=== PATIENT | male | born 1935 | race Hispanic/Latino ===

== ENCOUNTER 2018-08-07 10:51 | Inpatient (IN) | payer MEDICARE, BC ==
[2018-08-07 10:52] VITALS: BMI 20.8
--- NOTE | 2018-08-07 12:21 | ED PDOC ---
Arrival/HPI - General Chief Complaint: Lower Extremity Problem/Injury Time Seen by Provider: 08/07/18 11:22 Historian: Partner - History of Present Illness Narrative History of Present Illness (Text): Patient brought in by girlfriensilvina for right hip pain x2 days. He has a history of dementia and is unable to provide any more information. Girlfriend states that yesterday she got the patient out of bed and he yelled in pain when she tried to move his right leg. She also noted some possible right rib pain as well. She thought the the patient could have perhaps had a fall the night before, but she did not witness anything herself, and the patient was unable to tell her what happened due to his dementia. Girlfriend noted no overt signs of trauma. This morning she noted that the pain persisted, so she brought the patient to the ED. Time/Duration: 24 hours Symptom Onset: Sudden Symptom Course: Unchanged Activities at Onset: Rest Context: Home Past Medical History - Provider Review Nursing Documentation Reviewed: Yes - Infectious Disease Hx of Infectious Diseases: None - Cardiac Hx Cardiac Disorders: No Hx Pacemaker: No - Neurological Hx Paralysis: No - Hematological/Oncological Hx Blood Transfusions: No Hx Blood Transfusion Reaction: No - Musculoskeletal/Rheumatological Hx Musculoskeletal Disorders: No - Psychiatric Hx Emotional Abuse: No Hx Physical Abuse: No Hx Substance Use: No - Anesthesia Hx Anesthesia Reactions: No Hx Malignant Hyperthermia: No - Suicidal Assessment Feels Threatened In Home Enviroment: No Family/Social History - Physician Review Nursing Documentation Reviewed: Yes Family/Social History: Unknown Family HX Smoking Status: Unknown If Ever Smoked Hx Alcohol Use: No Hx Substance Use: No Allergies/Home Meds Allergies/Adverse Reactions: Allergies No Known Allergies Allergy (Verified 08/07/18 15:25) Home Medications: Home Meds Medication Instructions Recorded Confirmed Tamsulosin [Flomax] 0.4 mg PO POSTDI 03/17/15 08/07/18 Review of Systems - Physician Review All systems were reviewed & negative as marked: Yes - Review of Systems Constitutional: absent: Fatigue, Fevers Respiratory: absent: SOB, Cough, Wheezing Cardiovascular: absent: Chest Pain Musculoskeletal: Arthralgias (R. Hip and R. pain) Psychiatric: Other (Alzheimer ) Physical Exam Vital Signs Reviewed: Yes Vital Signs Temp Pulse Resp BP Pulse Ox 08/07/18 11:09 98.2 F 98 H 18 115/81 96 Temperature: Afebrile Blood Pressure: Normal Pulse: Regular Respiratory Rate: Normal Appearance: Positive for: Uncomfortable Pain Distress: Mild Mental Status: Positive for: Confused (baseline dementia). No: Lethargic - Systems Exam Head: Present: Atraumatic, Normocephalic. No: Tenderness, Contusion, Swelling, Ecchymosis, Abrasion, Laceration Pupils: Present: PERRL Extroacular Muscles: Present: EOMI Conjunctiva: Present: Normal Mouth: Present: Dry Nose (External): Present: Atraumatic Neck: Present: Normal Range of Motion Respiratory/Chest: Present: Clear to Auscultation, Good Air Exchange, Other (Mild tenderness to right lateral inferior ribs). No: Respiratory Distress Cardiovascular: Present: Regular Rate and Rhythm, Normal S1, S2 Abdomen: No: Tenderness, Distention, Peritoneal Signs Upper Extremity: Present: Normal Inspection. No: Cyanosis, Edema Lower Extremity: Present: Tenderness (R. Hip tenderness), Other (R. Leg held in external rotation). No: Edema, Cyanosis, Normal ROM (Decreased ROM Right Lower extremity ), Swelling, Erythema Neurological: Present: Other (Patient confused, has dementia, unable to fully perform neuro exam) Skin: Present: Warm, Dry, Normal Color, Other (No ecchymosis noted). No: Rashes, Laceration, Abrasion Psychiatric: Present: Alert, Other (Unable to answer questions due to dementia) Medical Decision Making ED Course and Treatment: 08/07/18 12:12 Impression: 83 year old F presents to the Emergency department with R. Rib and R. Hip pain since last night, according to girlfriend. Plan: --Motrin tab --HIP MIN V W/ Pelvis RT XRay --Right Ribs XRAY --Reassess and disposition Prior Visits: Notes and results from previous visits were reviewed. Progress Notes: Patient seen and examined. History obtained from girlfriend, who is the patient's POA. Sarah- . Imaging of R ribs and hip ordered. Motrin PO given for pain, girlfriend states she does not want the patient to get any narcotics to decrease his mental status. 08/07/18 14:01 Ribs XRAY: No acute displaced rib fracture No actute findings Hip/Pelvis XRay: Acute nondisplaced fracture in the right supra-acetabular iliac bone 08/07/18 15:24 Chest X-ray: No active pulmonary disease Hip fx noted. Ortho (Dr. Paez) consulted. Case discussed with Dr. Siobhan Simpson who accepts patient for admission. After patient was admitted, I was given an EKG that was done on patient arrival, presumably during triage. I did not order, review or sign off on the EKG and was thus unaware that it was done. EKG showed acute STEMI with ST elevation in V2-V6. I reviewed this EKG and immediately contacted Dr. Archibald, marketing communications specialist for code heart. Repeat EKG done showing the same STEMI findings. Patient denies chest pain. Dr. Archibald states that STEMI is likely subacute, recommends starting heparin. No code heart at this time. EKG 11:10 Sinus tachycardia, rate 109. LAD. Incomplete RBBB. ST elevation leads V2-V6. No ectopy. Normal intervals. Spoke to patient's girlfriend and discussed these new findings. Girlfriend states that patient has not had any complaints of chest pain or shortness of breath. She would like the patient to be DNR/DNI and does not want any invasive procedures including cardiac cath. Troponin added to labs and was found to be elevated. Spoke again to Dr. Siobhan Simpson, who agrees with plan for heparin for STEMI. CT head ordered to rule out intracranial hemorrhage prior to starting heparin, given unclear nature of fall. Code status order placed, patient DNR/DNI per girlfriend/POA's request. 08/07/18 21:45 CT Head: BRAIN No acute intraparenchymal hemorrhage. No mass lesion. No CT evidence for acute territorial infarct. No midline shift or extra-axial collections. There is advanced age appropriate diffuse cerebral/cerebellar atrophy. There are bilateral confluent periventricular and subcortical white matter hyperlucencies compatible with severe chronic microvascular disease. VENTRICLES: No hydrocephalus. VASCULAR: Atherosclerotic vascular plaquing is seen within the right vertebral artery and bilateral carotid siphons. ORBITS: The orbits are unremarkable. SINUSES AND MASTOIDS: The paranasal sinuses and mastoid air cells are clear. BONES: No fracture. SOFT TISSUES: Unremarkable. IMPRESSION: 1. No acute intracranial abnormality. 2. Advanced age-appropriate diffuse cerebral/cerebellar atrophy. 3. Severe chronic microvascular disease. 4. Atherosclerotic vascular plaquing as described above. Electronically signed on Aug 07, 2018 9:39:08 PM EDT by: Bhupendra Joshi M.D., MBA Certified By [facility] [facility] Fellowship Trained MRI and CT Specialist Heparin bolus and gtt initiated. Patient hemodynamically stable throughout ED course. - RAD Interpretation Radiology Orders: 08/07/18 11:40 HIP MIN 2V W/ PELVIS RT [RAD] Stat RIBS RIGHT [RAD] Stat Radio Director: Radiologist - Medication Orders Current Medication Orders: Discontinued Medications Ibuprofen (Motrin Tab) 600 mg PO STAT STA Stop: 08/07/18 11:41 Last Admin: 08/07/18 12:03 Dose: 600 mg MAR Pain/Vitals Document 08/07/18 12:03 DELPHINE (Rec: 08/07/18 12:03 DELPHINE [id number]) Pain Reassessment Is This A Pain ReAssessment? Yes Presence of Pain Presence of Pain Yes Location Left, Right or Bilateral Right Pain Location Body Site Knee - PA / [employer] / Resident Statement MD/DO has reviewed & agrees with the documentation as recorded. - Scribe Statement The provider has reviewed the documentation as recorded by the Michel Barrow All medical record entries made by the Michel were at my direction and personally dictated by me. I have reviewed the chart and agree that the record accurately reflects my personal performance of the history, physical exam, medical decision making, and the department course for this patient. I have also personally directed, reviewed, and agree with the discharge instructions and disposition. Disposition/Present on Arrival - Present on Arrival Any Indicators Present on Arrival: No History of DVT/PE: No History of Uncontrolled Diabetes: No Urinary Catheter: No History of Decub. Ulcer: No History Surgical Site Infection Following: None - Disposition Have Diagnosis and Disposition been Completed?: Yes Diagnosis: Hip fracture, right, STEMI (ST elevation myocardial infarction) Disposition: HOSPITALIZED Disposition Time: 14:01 Patient Plan: Admission, Telemetry Condition: GUARDED
--- NOTE | 2018-08-07 13:33 | RAD ---
PROCEDURE: Right Hip Radiographs. HISTORY: fall COMPARISON: None. FINDINGS: BONES: There is an acute nondisplaced fracture in the right supra-acetabular iliac bone. There is diffuse bone demineralization. No bone destruction. JOINTS: Mild degenerative osteoarthrosis in the left hip joint. The sacroiliac joints are normal. SOFT TISSUES: Normal. OTHER FINDINGS: Multiple small phleboliths in the pelvis. IMPRESSION: Acute nondisplaced fracture in the right supra-acetabular iliac bone. The final report is tagged to the PA review folder.
--- NOTE | 2018-08-07 13:44 | RAD ---
Date of service: 08/07/2018 PROCEDURE: Radiographs of the Chest and Right Ribs. HISTORY: fall COMPARISON: None available. TECHNIQUE: Frontal radiograph of the chest and multiple oblique radiographs of the right ribs were obtained. FINDINGS: RIGHT RIBS: No acute fracture or focal lesion visualized. There is diffuse bone demineralization LUNGS: The right lung is well inflated and clear. There are small calcified granulomas in the right PLEURA: No pneumothorax or pleural fluid. CARDIOVASCULAR: Normal cardiac size. No pulmonary vascular congestion. No aortic atherosclerotic calcification present OTHER FINDINGS: None. IMPRESSION: No acute displaced rib fracture. No acute findings.
--- NOTE | 2018-08-07 15:16 | RAD ---
Date of service: 08/07/2018 HISTORY: preop COMPARISON: No prior. FINDINGS: LUNGS: The lungs are well inflated and clear. There are apparent small calcified nodules in the left mid lung. PLEURA: No pleural effusions or pneumothorax. CARDIOVASCULAR: The heart is normal in size. There is unfolding of the aorta. There are aortic atherosclerotic calcifications present. OSSEOUS STRUCTURES: Within normal limits for the patient's age. VISUALIZED UPPER ABDOMEN: Normal. OTHER FINDINGS: None. IMPRESSION: No active pulmonary disease.
[2018-08-07 16:55] LABS: INR 1.32; PROTHROMBIN TIME 14.7 SECONDS (9.4-12.5)
[2018-08-07 17:00] LABS: BASO # 0.01 K/mm3 (0.0-2.0); HEMOGLOBIN 10.6 g/dL (14.0-18.0); LYMPH % 4.5 % (22.0-35.0); MEAN CELL VOLUME 91.3 fl (80.0-105.0); MEAN CORPUSCULAR HEMOGLOBIN 30.8 pg (25.0-35.0); MEAN CORPUSCULAR HGB CONC 33.8 g/dl (31.0-37.0); MEAN PLATELET VOLUME 10.3 fl (7.0-11.0); MONO # 2.7 (0.1-0.6); MONO % 11.8 % (1.0-6.0); PLATELET COUNT 186 10^3/uL (120.0-450.0); RBC 3.44 10^6/uL (3.5-6.1); RED CELL DISTRIBUTION WIDTH 14.4 % (11.5-14.5); WHITE BLOOD COUNT 22.9 10^3/uL (4.5-11.0)
[2018-08-07 17:02] LABS: ALB/GLOB RATIO 1.2 (1.1-1.8); ALBUMIN 4.3 g/dL (3.0-4.8); CALCIUM 9.8 mg/dL (8.4-10.5)
--- NOTE | 2018-08-07 17:10 | CARD ---
APPROVED REPORT Date of service: 08/07/2018 EKG Measurement Heart [id number] <Conclusion> Sinus tachycardia Left axis deviation Incomplete right bundle branch block Anterior infarct, age undetermined Lateral injury pattern ACUTE [place] Abnormal ECG
[2018-08-07 17:40] LABS: TROPONIN I 42.8 ng/mL
[2018-08-07 17:46] LABS: LYMPHOCYTE 9 % (22.0-35.0); MONOCYTE 10 % (1.0-6.0); NEUTROPHIL 81 % (50.0-70.0)
[2018-08-07 17:47] LABS: HYPOCHROMIA 2+; PLATELET ESTIMATE NORMAL (NORMAL); ROULEAU 2+; TOXIC GRANULATION 2+
[2018-08-07] MEDS ORDERED: Heparin25000 units/250ml 1/2NS 25,000 UNITS/250 ML BAG IV SCH (20:00)
--- NOTE | 2018-08-07 20:37 | HP ---
HISTORY OF PRESENT ILLNESS: The patient is an 83-year-old man with a past medical history of hypertension and Alzheimer dementia who presented for evaluation of a 2 day history of right hip pain. The patient was in his usual state of health until approximately 2 days prior to presentation when he sustained a mechanical fall with resultant right hip trauma. The patient was found to have difficulty ambulating and bearing weight on his right side following his mechanical fall. His pain did not respond to [id number] analgesics and thus he presented to the ED for evaluation. In the ED he was afebrile and hemodynamically stable but in moderate distress secondary to right hip pain. An x-ray demonstrated an acute nondisplaced fracture of the right supraacetabular iliac bone. He was subsequently admitted for pain control, PT evaluation and orthopedic evaluation. PAST MEDICAL HISTORY: As per HPI, also BPH and vitamin B12 deficiency. PAST SURGICAL HISTORY: None. ALLERGIES: NKDA. MEDICATIONS: Lisinopril 10 mg p.o. daily, Flomax 0.4 mg p.o. daily, Donepezil 10 mg p.o. daily and Vitamin B12 1000 mcg IM every monthly. FAMILY HISTORY: Noncontributory. 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 He denies tobacco use or illicit drug abuse. REVIEW OF SYSTEMS: A 12-point review of systems is unobtainable given the patient's altered mental status. PHYSICAL EXAMINATION: VITAL SIGNS: Temperature 98.2, pulse 98, blood pressure 115/81, respiratory rate 18, and oxygen saturation 96% on room air. GENERAL: Frail elderly man, lying in bed, in moderate distress secondary to right hip pain. HEENT: PERRL, EOMI. No scleral icterus. No conjunctival pallor. NECK: No JVD. LUNGS: Clear to auscultation. CARDIOVASCULAR: Regular rate and rhythm. Normal S1 and S2. ABDOMEN: Normoactive bowel sounds, soft, nontender and nondistended. EXTREMITIES: No edema. Decreased range of motion to right lower extremity (limited by pain). NEUROLOGIC: Awake and alert, oriented to person. Moving all extremities and able to follow simple commands. LABORATORY DATA: Labs are pending. IMAGING STUDIES: 1. X-ray of the pelvis demonstrated acute nondisplaced fracture to the right supra acetabular iliac bone. ASSESSMENT: The patient is an 83-year-old man with a past medical history of hypertension and Alzheimer dementia who presented s/p mechanical fall with resultant fracture of the right supraacetabular iliac bone. PLAN: 1. Acute fracture of the right supraacetabular iliac bone. Imaging studies reviewed and orthopedic evaluation is pending. We will obtain routine labs, CXR and EKG in anticipation of OR. 2. Hypertension. Blood pressure controlled. Resume Lisinopril 10 mg p.o. daily. 3. BPH. Resume Flomax 0.4 mg p.o. daily. 4. Alzheimer dementia. The patient remains at his baseline mental status. Resume Donepezil 10 mg p.o. daily. CODE STATUS: DNR/DNI. Rashid Simpson MD MTDMagdi
[2018-08-07] MEDS: Sodium Chloride 0.9% 1,000 ML IV SCH (21:19)
[2018-08-07] MEDS: Heparin 25,000units in 1/2NS 250 ML BAG IV SCH (21:54)
[2018-08-08 04:09] LABS: BASO # 0.01 K/mm3 (0.0-2.0); BASO % 0.1 % (0.0-3.0); LYMPH # 0.9 (1.2-3.4); LYMPH % 5.6 % (22.0-35.0); MEAN CELL VOLUME 91.4 fl (80.0-105.0); MEAN CORPUSCULAR HEMOGLOBIN 30.9 pg (25.0-35.0); MEAN CORPUSCULAR HGB CONC 33.8 g/dl (31.0-37.0); MEAN PLATELET VOLUME 9.5 fl (7.0-11.0); MONO # 1.6 (0.1-0.6); MONO % 10.1 % (1.0-6.0); RBC 2.91 10^6/uL (3.5-6.1); RED CELL DISTRIBUTION WIDTH 14.5 % (11.5-14.5); WHITE BLOOD COUNT 15.6 10^3/uL (4.5-11.0)
[2018-08-08 04:34] LABS: ALB/GLOB RATIO 1.2 (1.1-1.8); ALBUMIN 3.9 g/dL (3.0-4.8); CALCIUM 9.2 mg/dL (8.4-10.5)
[2018-08-08 04:52] LABS: TROPONIN I 31.4 ng/mL
[2018-08-08] MEDS: Sodium Chloride 0.9% 1,000 ML IV SCH (07:13)
--- NOTE | 2018-08-08 09:05 | PN ---
SUBJECTIVE: The patient was seen and examined at bedside on the telemetry [place]. No acute events overnight. He remains afebrile, hemodynamically stable and chest pain free. The patient initially presented s/p fall with resultant right hip fracture. A preoperative EKG obtained in the ED demonstrated ST elevations in the lateral leads with an elevated troponin of 42.8. He was started on a Heparin drip and admitted to the telemetry [place] for continued care. A repeat troponin was 31.4 and cardiac workup is ongoing with Dr. Archibald. Again, this morning the patient remains chest pain free and offers no complaints. OBJECTIVE: VITAL SIGNS: Temperature 98.1, pulse 97, blood pressure 127/72, respiratory rate 18, oxygen saturation 97% on room air. GENERAL: Frail elderly man lying in bed in no apparent distress. HEENT: PERRL, EOMI. No scleral icterus. No conjunctival pallor. Poor dentition is noted. NECK: No JVD. LUNGS: Clear to auscultation. CARDIOVASCULAR: Regular rate and rhythm. Normal S1, S2. ABDOMEN: Normoactive bowel sounds, soft, nontender, nondistended. EXTREMITIES: No edema. Decreased range of motion to right lower extremity (limited by pain). NEUROLOGIC: Awake and alert, oriented to person. Moving all extremities. Able to follow simple commands and answer questions. LABORATORY DATA: WBC 15.6 with 84% neutrophils, hemoglobin 9, hematocrit 27, platelets 145. Sodium 140, potassium 4.6, chloride 104, bicarb 28, BUN 68, creatinine 1.7, glucose 115. Troponin 42.8, 31.4. ASSESSMENT: The patient is an 83-year-old man with a past medical history of hypertension and Alzheimer dementia who presented s/p fall with resultant right hip fracture and was also noted to have a STEMI on preoperative EKG. PLAN: 1. STEMI. Input from Dr. Archibald noted. The patient has been started on a Heparin drip. We will start Aspirin 81 mg p.o. daily, Lipitor 40 mg p.o. daily and Metoprolol 25 mg p.o. b.i.d. He remains chest pain free. We will order a TTE to assess for wall motion abnormality. Lipid panel, TSH and A1c are pending. 2. Acute fracture of the right supra acetabular iliac bone. Orthopedic evaluation with Dr. Paez is pending. In light of his STEMI the patient will require cardiac clearance and certainly will be a high-risk candidate for an intermediate risk procedure. 3. Hypertension. Blood pressure controlled. We will discontinue Lisinopril in the setting of DANNA and start the patient on Metoprolol 25 mg p.o. b.i.d. 4. DANNA, likely secondary to prerenal azotemia. We will discontinue Lisinopril and start gentle IV fluid hydration. Continue to monitor I&O's and renal function daily. 5. BPH. Continue Flomax 0.4 mg p.o. daily. 6. Alzheimer dementia. Continue donepezil 10 mg p.o. daily. 7. Prophylaxis. GI prophylaxis not indicated as the patient is eating. DVT prophylaxis not indicated as the patient remains on therapeutic Heparin. CODE STATUS: DNR/DNI. Rashid Simpson MD MTDMagdi
--- NOTE | 2018-08-08 09:32 | CARD ---
APPROVED REPORT Date of service: 08/07/2018 EKG Measurement Heart [id number] <Conclusion> Sinus tachycardia Incomplete right bundle branch block Left anterior fascicular block ST elevation, consider anterolateral injury or acute infarct ACUTE [place] Abnormal ECG
--- NOTE | 2018-08-08 10:06 | CT ---
Date of service: 08/07/2018 PROCEDURE: CT HEAD WITHOUT CONTRAST. HISTORY: Fall COMPARISON: None available. TECHNIQUE: Axial computed tomography images were obtained through the head/brain without intravenous contrast. Radiation dose: Total exam DLP = 931.49 mGy-cm. This CT exam was performed using one or more of the following dose reduction techniques: Automated exposure control, adjustment of the mA and/or kV according to patient size, and/or use of iterative reconstruction technique. FINDINGS: HEMORRHAGE: No acute parenchymal, subarachnoid nor extra-axial hemorrhage. BRAIN: Significant diffuse/confluent chronic periventricular white matter ischemic changes seen extending peripherally into deep and subcortical white matter both cerebral hemispheres.. There appears to be some extension of these changes into the white matter tracts of both basal nuclei. Note the possibility of a small hyperacute infarct cannot be excluded on this study Moderate to fairly significant generalized volume loss. Mild vascular calcifications both carotid siphons and vertebral arteries. No obvious parenchymal nor extra-axial masses or collections seen on this noncontrast study. VENTRICLES: No obstructive hydrocephalus. CALVARIUM: Unremarkable. PARANASAL SINUSES: Mild mucosal thickening right maxillary antrum. MASTOID AIR CELLS: Unremarkable as visualized. No inflammatory changes. OTHER FINDINGS: Changes of bilateral cataract surgery present IMPRESSION: No acute intracranial hemorrhage. Significant diffuse/confluent chronic periventricular white matter ischemic changes seen extending peripherally into deep and subcortical white matter both cerebral hemispheres.. There appears to be some extension of these changes into the white matter tracts of both basal nuclei. Note the possibility of a small hyperacute infarct cannot be excluded on this study Moderate to fairly significant generalized volume loss.
[2018-08-08 11:35] LABS: HDL CHOLESTEROL 22 mg/dL (29-60)
[2018-08-08 11:45] LABS: LDL CHOLESTEROL 42 mg/dL (0-129)
--- NOTE | 2018-08-08 11:50 | CP.PCM.CON ---
History of Present Illness - History of Present Illness History of Present Illness: Ortho Consult Note: Dr. Fonseca 83 year male with PMHx of dementia was evaluated for right hip fracture. Patient is a poor historian and information retrieved from the charts. Patient states that he does not recall how he got his hip hurt. States that he tried to get out of the bed yesterday and had a lot of pain in the hip. Patient denies of any recent F/N/V/C/SOB/CP/headache. No other complains at this time. PMHx: Dementia PSHx: denies Allergies: N.K.D.A Review of Systems - Constitutional Constitutional: As Per HPI Past Patient History - Infectious Disease Hx of Infectious Diseases: None - Past Social History Smoking Status: Unknown If Ever Smoked - CARDIAC Hx Cardiac Disorders: Yes Hx Angina: No Hx Cardia Arrhythmia: No Hx Circulatory Problems: No Hx Congestive Heart Failure: No Hx Heart Murmur: No Hx Heart Transplant: No Hx Hypercholesterolemia: No Hx Hypertension: Yes Hx Internal Defibrillator: No Hx Mitral Valve Prolapse: No Hx Pacemaker: No Hx Peripheral Edema: No Hx Peripheral Vascular Disease: No - PULMONARY Hx Respiratory Disorders: No Hx Asthma: No Hx Bronchitis: No Hx Chronic Obstructive Pulmonary Disease (COPD): No Hx Emphysema: No Hx Pneumonia: No Hx Respiratory Aspiration: No Hx Respiratory Tract Infection: No Hx Sleep Apnea: No Hx Tuberculosis: No - NEUROLOGICAL Hx Neurological Disorder: Yes Hx Alzheimer's Disease: Yes HX Cerebrovascular Accident: No Hx Dementia: Yes Hx Dizziness: No Hx Meningitis: No Hx Migraine: No Hx Parkinson's Disease: No Hx Seizures: No Hx Transient Ischemic Attacks (TIA): No - HEENT Hx HEENT Problems: No Hx Blind: No Hx Cataracts: No Hx Deafness: No Hx Difficulty Chewing: No Hx Epistaxis: No Hx Glaucoma: No Hx Macular Degeneration: No - RENAL Hx Chronic Kidney Disease: No Hx Dialysis: No Hx Kidney Stones: No Hx Neurogenic Bladder: No Hx Pyelonephritis: No Hx Renal (Kidney) Cancer: No Hx Renal Failure: No - ENDOCRINE/METABOLIC Hx Endocrine Disorders: No Hx Adrenal Cancer: No Hx Diabetes Insipidus: No Hx Diabetes Mellitus Type 1: No Hx Diabetes Mellitus Type 2: No Hx Hyperthyroidism: No Hx Hypothyroidism: No Hx Systemic Lupus Erythematosus: No - HEMATOLOGICAL/ONCOLOGICAL Hx Blood Disorders: No Hx AIDS: No Hx Anemia: No Hx Cancer: No Hx Chemotherapy: No Hx Cirrhosis: No Hx Hemophilia: No Hx Hepatitis A: No Hx Hepatitis B: No Hx Hepatitis C: No Hx Human Immunodeficiency Virus (HIV): No Hx Metastesis: No Hx Shingles: No Hx Sickle Cell Disease: No Hx Unexplained Bleeding: No - INTEGUMENTARY Hx Dermatological Problems: No Hx Basil Cell: No Hx Eczema: No Hx Melanoma: No Hx Psoriasis: No Hx Squamous Cell: No - MUSCULOSKELETAL/RHEUMATOLOGICAL Hx Musculoskeletal Disorders: Yes Hx Arthritis: No Hx Back Pain: No Hx Degenerative Joint Disease: No Hx Falls: Yes Hx Fractures: No Hx Gout: No Hx Herniated Disk: No Hx Myasthenia Gravis: No Hx Osteoarthritis: No Hx Osteomyelitis: No Hx Osteoporosis: No Hx Rhabdomyolysis: No Hx Spinal Stenosis: No Hx Unsteady Gait: No - GASTROINTESTINAL Hx Gastrointestinal Disorders: No Hx Colostomy: No Hx Crohn's Disease: No Hx Diverticulitis: No Hx Gall Bladder Disease: No Hx Gastroesophageal Reflux: No Hx Ileostomy: No Hx Liver Failure: No Hx Pancreatitis: No HX Swallowing Problems: No Hx Ulcer: No - GENITOURINARY/GYNECOLOGICAL Hx Genitourinary Disorders: Yes Hx Hematuria: No Hx Incontinence: Yes Hx Prostate Problems: No Hx Sexually Transmitted Disorders: No Hx Urinary Tract Infection: No - PSYCHIATRIC Hx Psychophysiologic Disorder: No Hx Anxiety: No Hx Bipolar Disorder: No Hx Depression: No Hx Emotional Abuse: No Hx Hallucinations: No Hx Panic Symptoms: No Hx Paranoia: No Hx Post Traumatic Stress Disorder: No Hx Psychosis: No Hx Physical Abuse: No Hx Schizophrenia: No Hx Sexual Abuse: No Hx Substance Use: No - SURGICAL HISTORY Hx Surgeries: No (unknown) Hx Cardiac Catheterization: No Hx Coronary Stent: No - ANESTHESIA Hx Anesthesia Reactions: No Hx Malignant Hyperthermia: No Meds Allergies/Adverse Reactions: Allergies Allergy/AdvReac Type Severity Reaction Status Date / Time No Known Allergies Allergy Verified 08/07/18 15:25 - Medications Medications: Current Medications Aspirin (Aspirin Chewable) 81 mg PO DAILY [facility] Last Admin: 08/08/18 09:24 Dose: 81 mg Atorvastatin Calcium (Lipitor) 40 mg PO DIN [facility] Donepezil HCl (Aricept) 10 mg PO DAILY [facility] Last Admin: 08/08/18 09:24 Dose: 10 mg Sodium Chloride (Sodium Chloride 0.9%) 1,000 mls @ 100 mls/hr IV .Q10H [facility] Last Admin: 08/08/18 07:13 Dose: 100 mls/hr Heparin Sodium/Sodium Chloride (Heparin 45330 Units/250ml 1/2 Normal Saline) 25,000 units in 250 mls @ 6.885 mls/hr IV .Q24H [facility]; Protocol Last Admin: 08/07/18 21:54 Dose: 12 units/kg/hr, 6.885 mls/hr Metoprolol Tartrate (Lopressor) 25 mg PO BID [facility] Last Admin: 08/08/18 09:24 Dose: 25 mg Tamsulosin HCl (Flomax) 0.4 mg PO DAILY [facility] Last Admin: 08/08/18 09:24 Dose: 0.4 mg Physical Exam - Constitutional Appears: Well, Non-toxic, No Acute Distress - Extremities Exam Extremities exam: Positive for: tenderness, pedal pulses present. Negative for: calf tenderness, pedal edema Additional comments: Pain present at the right hip during AROM and PROM Patient is guarding due to pain Results - Vital Signs Recent Vital Signs: Last Vital Signs Temp 98.1 F 08/08/18 06:00 Pulse 182 H 08/08/18 09:24 Resp 18 08/08/18 06:00 BP 93/56 L 08/08/18 09:24 Pulse Ox 97 08/08/18 06:00 - Labs Result Diagrams: 08/08/18 03:50 08/08/18 03:50 Labs: Laboratory Results - last 24 hr 08/07/18 08/07/18 08/07/18 16:37 16:37 16:37 WBC 22.9 H RBC 3.44 L Hgb 10.6 L Hct 31.4 L MCV 91.3 MCH 30.8 MCHC 33.8 RDW 14.4 Plt Count 186 MPV 10.3 Neut % (Auto) 83.7 H Lymph % (Auto) 4.5 L Vigo % (Auto) 11.8 H Eos % (Auto) 0.0 L Baso % (Auto) 0.0 Lymph # (Auto) 1.0 L Vigo # (Auto) 2.7 H Eos # (Auto) 0.0 Baso # (Auto) 0.01 Absolute Neuts (auto) 19.15 H Neutrophils % (Manual) 81 H Lymphocytes % (Manual) 9 L Monocytes % (Manual) 10 H Toxic Granulation 2+ Platelet Evaluation Normal Hypochromasia 2+ Rouleaux 2+ PT 14.7 H INR 1.32 APTT Sodium 139 Potassium 4.7 Chloride 101 Carbon Dioxide 28 Anion Gap 15 BUN 64 H Creatinine 1.8 H Est GFR ( Amer) 44 Est GFR (Non-Af Amer) 36 Random Glucose 121 H Calcium 9.8 Total Bilirubin 1.0 AST 152 H ALT 38 Alkaline Phosphatase 71 Troponin I 42.80 H* Total Protein 8.0 Albumin 4.3 Globulin 3.6 Albumin/Globulin Ratio 1.2 08/07/18 08/08/18 08/08/18 16:56 03:50 03:50 WBC 15.6 H D RBC 2.91 L Hgb 9.0 L Hct 26.6 L MCV 91.4 MCH 30.9 MCHC 33.8 RDW 14.5 Plt Count 145 MPV 9.5 Neut % (Auto) 84.2 H Lymph % (Auto) 5.6 L Vigo % (Auto) 10.1 H Eos % (Auto) 0.0 L Baso % (Auto) 0.1 Lymph # (Auto) 0.9 L Vigo # (Auto) 1.6 H Eos # (Auto) 0.0 Baso # (Auto) 0.01 Absolute Neuts (auto) 13.15 H Neutrophils % (Manual) Lymphocytes % (Manual) Monocytes % (Manual) Toxic Granulation Platelet Evaluation Hypochromasia Rouleaux PT INR APTT 31.0 Sodium 140 Potassium 4.6 Chloride 104 Carbon Dioxide 28 Anion Gap 13 BUN 68 H Creatinine 1.7 H Est GFR ( Amer) 47 Est GFR (Non-Af Amer) 39 Random Glucose 115 H Calcium 9.2 Total Bilirubin 0.8 AST 105 H D ALT 34 Alkaline Phosphatase 65 Troponin I 31.40 H* D Total Protein 7.2 Albumin 3.9 Globulin 3.3 Albumin/Globulin Ratio 1.2 08/08/18 08/08/18 03:50 11:10 WBC RBC Hgb Hct MCV MCH MCHC RDW Plt Count MPV Neut % (Auto) Lymph % (Auto) Vigo % (Auto) Eos % (Auto) Baso % (Auto) Lymph # (Auto) Vigo # (Auto) Eos # (Auto) Baso # (Auto) Absolute Neuts (auto) Neutrophils % (Manual) Lymphocytes % (Manual) Monocytes % (Manual) Toxic Granulation Platelet Evaluation Hypochromasia Rouleaux PT INR APTT 52.8 H 34.4 Sodium Potassium Chloride Carbon Dioxide Anion Gap BUN Creatinine Est GFR ( Amer) Est GFR (Non-Af Amer) Random Glucose Calcium Total Bilirubin AST ALT Alkaline Phosphatase Troponin I Total Protein Albumin Globulin Albumin/Globulin Ratio Assessment & Plan - Assessment and Plan (Free Text) Assessment: 83 year old male with PMHx of dementia was evaluated for right hip fracture Plan: Patient seen and evaluated with Dr. Fonseca Labs, vitals and charts reviewed X-rays of the hip reviewed - Acute non-displaced fracture in right supra-acetabular iliac CT scan ordered - pending Will continue to follow patient Thank you for the Ortho consult - Date & Time Date: 08/08/18 Time: 11:53
--- NOTE | 2018-08-08 14:07 | CT ---
Date of service: 08/08/2018 PROCEDURE: CT pelvis/right hip HISTORY: Fall/right hip fracture. . COMPARISON: August 07, 2018. Plain film radiographs right hip TECHNIQUE: 2.5 mm axial acquisition and display. Coronal and sagittal reconstructions. Dose report (mGy-cm): 185.56. FINDINGS: Fracture through the right pelvic ring. Slightly displaced ischial fracture. Comminuted fracture of the pubis at its articulation with the anterior aspect of the acetabulum Fractures through the anterior aspect of the acetabulum and the posterior aspect of the acetabulum. There is also fracture fragment through the lateral acetabular wall. No femoral head/proximal femur fractures identified. Evidence of hemarthrosis without subluxation or dislocation. Hemorrhage also identified in adjacent pelvic musculature. IMPRESSION: Complex pelvic ring fracture described in greater detail above. Multipart burst fracture likely the sequela of direct impaction by the femoral head on the acetabulum. This involves medial, anterior and posterior aspects of the acetabular complex. The superior component extends laterally, to the super acetabular portion of the right iliac bone. At this juncture, there is destruction of bone and intramedullary soft tissue component suggesting in part a pathologic fracture.
[2018-08-08] MEDS ORDERED: Morphine 2 mg/ml ISec IVP ONE (21:42)
[2018-08-08] MEDS: Nitroglycerin 2% Ointment Foilpak UD TOP SCH (23:16)
--- NOTE | 2018-08-08 23:37 | CP.PCM.PN ---
Subjective - Date & Time of Evaluation Date of Evaluation: 08/08/18 Time of Evaluation: 23:34 - Subjective Subjective: To be dictated. Seen morphine ordered for right hip pain right leg short,rotated Objective - Vital Signs/Intake and Output Vital Signs (last 24 hours): Temp Pulse Resp BP Pulse Ox 98.6 F 83 18 115/58 L 97 08/08/18 18:00 08/08/18 18:00 08/08/18 18:00 08/08/18 18:00 08/08/18 06:00 Intake and Output: 08/08/18 08/09/18 18:59 06:59 Intake Total 96 1896 Balance 96 1896 - Medications Medications: Current Medications Aspirin (Aspirin Chewable) 81 mg PO DAILY [facility] Last Admin: 08/08/18 09:24 Dose: 81 mg Atorvastatin Calcium (Lipitor) 40 mg PO DIN [facility] Last Admin: 08/08/18 17:30 Dose: 40 mg Donepezil HCl (Aricept) 10 mg PO DAILY [facility] Last Admin: 08/08/18 09:24 Dose: 10 mg Sodium Chloride (Sodium Chloride 0.9%) 1,000 mls @ 100 mls/hr IV .Q10H [facility] Last Admin: 08/08/18 07:13 Dose: 100 mls/hr Heparin Sodium/Sodium Chloride (Heparin 54726 Units/250ml 1/2 Normal Saline) 25,000 units in 250 mls @ 6.885 mls/hr IV .Q24H [facility]; Protocol Last Titration: 08/08/18 13:11 Dose: 16 units/kg/hr, 9.181 mls/hr Metoprolol Tartrate (Lopressor) 25 mg PO BID [facility] Last Admin: 08/08/18 17:30 Dose: 25 mg Nitroglycerin (Nitro-Bid 2% Oint) 0.5 ea TOP Q6H [facility] Last Admin: 08/08/18 23:16 Dose: 0.5 ea Tamsulosin HCl (Flomax) 0.4 mg PO DAILY [facility] Last Admin: 08/08/18 09:24 Dose: 0.4 mg - Labs Labs: 08/08/18 03:50 08/08/18 03:50 PT 14.7 SECONDS (9.4-12.5) H 08/07/18 16:37 INR 1.32 08/07/18 16:37 APTT 77.2 Seconds (26.9-38.3) H 08/08/18 19:15 Assessment and Plan - Assessment and Plan (Free Text) Assessment: Right hip pain Right hip fracture HTN Alzheimer's Dementia BPH Plan: Morphine 2 mg IV x 1.
[2018-08-09] MEDS: Nitroglycerin 2% Ointment Foilpak UD TOP SCH ×4 (01:18→18:19)
[2018-08-09] MEDS: Heparin 25,000units in 1/2NS 250 ML BAG IV SCH (01:21)
--- NOTE | 2018-08-09 01:54 | CON ---
DATE: 08/08/2018 CARDIOLOGY CONSULTATION REASON FOR CONSULTATION: Abnormal EKG, computer reading with acute ST elevation PR, possible recent PR, asymptomatic demented patient. BRIEF CLINICAL HISTORY: This is an 83-year-old male with past medical history significant for dementia, hypertension, who came to the emergency room with 2 days history of right hip pain. Apparently, the patient fell down 2 days after having mechanical fall and sustained right hip trauma, came to the emergency room. Initially, the patient was using [id number] medications by the friend, now came to the emergency room found to be have acute fracture of the right hip supra-acetabular iliac bone nondisplaced, but incidental EKG finding shows ST elevation in anterior precordial leads. So, cardiac consult was called. Patient was asymptomatic and demented. ER physician notified me that he had spoke to the friend who is the power of contract attorney and does not want anything cardiac cath or any invasive procedure done and made the patient DNR/DNI. Currently, the patient is asymptomatic in room 276, bed 1. On further asking the questions, patient says that he is right here. He is not oriented to time, place, and person, but is not in apparent distress. Denies any chest pain. PAST MEDICAL HISTORY: Significant for Alzheimer disease, vitamin B12 deficiency, and benign prostatic hypertrophy. CURRENT MEDICATIONS: Patient is taking Flomax at home. REVIEW OF SYSTEMS: As per HPI. ALLERGIES: NO KNOWN DRUG ALLERGIES. PHYSICAL EXAMINATION: VITAL SIGNS: Height of the patient 5 feet 6 inches, weight of the patient 111 pounds, body mass index 18 kg/m2. Temperature afebrile, heart rate 60, and blood pressure 115/58. HEENT: PERRLA. Extraocular muscles intact. NECK: Supple. No carotid bruits. No thyromegaly. CHEST: Clear to auscultation. HEART: S1 and S2, regular. ABDOMEN: Soft. EXTREMITIES: Clubbing and cyanosis, negative. LABORATORY DATA: WBC 15.6, hemoglobin 9, hematocrit 26.6, and platelet count 145. Chemistry shows sodium 140, potassium 4.6, chloride 104, carbon dioxide 28, anion gap of 13, BUN 16, and creatinine 1.7. Troponin initially was 42.8, 31.4, and now trending down to 31.4. IMPRESSION AND PLAN: An 83-year-old male status post fall, demented, possible acute recent myocardial infarction. No ST depression reciprocal noted though the patient had ST elevation in anterior lead possibly acute lateral myocardial infarction of recent, may be aneurysmal apex LV, but no acute ST depression reciprocal. Since the patient is asymptomatic and demented, risk and benefit ratio is in favor of not to take the patient to [facility] and we will treat conservatively, started heparin yesterday. After discussing with ER physician, we will start low dose beta-devin aspirin and we will put Nitropaste. We will get echo to assess LV function, lipid profile, and start atorvastatin. Further recommendations will depend on hospital course. We will follow with you. Again, we will treat conservatively. Patient is not a candidate to go to lab[facility] chemical processing. Thank you , for providing us opportunity in taking care of patient, Abhishek Stone. Junior Archibald MD
[2018-08-09] MEDS: Sodium Chloride 0.9% 1,000 ML IV SCH ×2 (06:34→06:36)
[2018-08-09 07:47] LABS: BASO # 0.01 K/mm3 (0.0-2.0); BASO % 0.1 % (0.0-3.0); HEMOGLOBIN 7.1 g/dL (14.0-18.0); LYMPH # 0.9 (1.2-3.4); LYMPH % 8.1 % (22.0-35.0); MEAN CELL VOLUME 91.8 fl (80.0-105.0); MEAN CORPUSCULAR HEMOGLOBIN 30.6 pg (25.0-35.0); MEAN CORPUSCULAR HGB CONC 33.3 g/dl (31.0-37.0); MEAN PLATELET VOLUME 9.1 fl (7.0-11.0); MONO # 0.9 (0.1-0.6); MONO % 8.1 % (1.0-6.0); RBC 2.32 10^6/uL (3.5-6.1); RED CELL DISTRIBUTION WIDTH 14.6 % (11.5-14.5); WHITE BLOOD COUNT 11.2 10^3/uL (4.5-11.0)
[2018-08-09 08:10] LABS: LDL CHOLESTEROL 47 mg/dL (0-129)
[2018-08-09 08:12] LABS: ALB/GLOB RATIO 1.1 (1.1-1.8); ALBUMIN 3.6 g/dL (3.0-4.8); ALT/SGPT 32 U/L (7-56); AST/SGOT 75 U/L (17-59); BLOOD UREA NITROGEN 53 mg/dL (7-21); GFR NON-AFRICAN AMERICAN 58
[2018-08-09 08:38] LABS: ALB/GLOB RATIO 1.1 (1.1-1.8); ALBUMIN 3.5 g/dL (3.0-4.8); ALT/SGPT 29 U/L (7-56); AST/SGOT 75 U/L (17-59); BLOOD UREA NITROGEN 53 mg/dL (7-21); CALCIUM 8.9 mg/dL (8.4-10.5); GFR NON-AFRICAN AMERICAN 58; HDL CHOLESTEROL 21 mg/dL (29-60)
[2018-08-09 09:02] LABS: CK MB% 3.7 % (2.5-3.0); CK-MB 16.3 ng/mL (0.0-3.6)
--- NOTE | 2018-08-09 09:43 | CP.PCM.PN ---
Subjective - Date & Time of Evaluation Date of Evaluation: 08/09/18 Time of Evaluation: 06:55 - Subjective Subjective: Awake, very agitated, complaints of hip pain Reason for consultation and follow up: Cardiac evaluation of abnormal EKG, EKG reading acute ST elevation PA, denies chest pain, patient demented, recent fall complaining of right hip pain. Seen and examined by me and Dr. Archibald Objective - Vital Signs/Intake and Output Vital Signs (last 24 hours): Temp Pulse Resp BP Pulse Ox 97.4 F L 75 20 128/74 99 08/09/18 06:00 08/09/18 06:00 08/09/18 06:00 08/09/18 06:00 08/09/18 06:00 Intake and Output: 08/09/18 08/09/18 06:59 18:59 Intake Total 2049 Balance 2049 - Medications Medications: Current Medications Aspirin (Aspirin Chewable) 81 mg PO DAILY [facility] Last Admin: 08/08/18 09:24 Dose: 81 mg Atorvastatin Calcium (Lipitor) 40 mg PO DIN [facility] Last Admin: 08/08/18 17:30 Dose: 40 mg Donepezil HCl (Aricept) 10 mg PO DAILY [facility] Last Admin: 08/08/18 09:24 Dose: 10 mg Heparin Sodium/Sodium Chloride (Heparin 58480 Units/250ml 1/2 Normal Saline) 25,000 units in 250 mls @ 6.885 mls/hr IV .Q24H [facility]; Protocol Last Admin: 08/09/18 01:21 Dose: 16 units/kg/hr, 9.181 mls/hr Metoprolol Tartrate (Lopressor) 25 mg PO BID [facility] Last Admin: 08/08/18 17:30 Dose: 25 mg Nitroglycerin (Nitro-Bid 2% Oint) 0.5 ea TOP Q6H [facility] Last Admin: 08/09/18 06:36 Dose: 0.5 ea Tamsulosin HCl (Flomax) 0.4 mg PO DAILY [facility] Last Admin: 08/08/18 09:24 Dose: 0.4 mg - Labs Labs: 08/09/18 07:30 08/09/18 07:30 PT 14.7 SECONDS (9.4-12.5) H 08/07/18 16:37 INR 1.32 08/07/18 16:37 APTT 53.5 Seconds (26.9-38.3) H 08/09/18 01:15 - Constitutional Appears: Non-toxic, No Acute Distress - Head Exam Head Exam: NORMAL INSPECTION, NORMOCEPHALIC - Eye Exam Eye Exam: Normal appearance - ENT Exam ENT Exam: Mucous Membranes Dry - Respiratory Exam Respiratory Exam: Clear to Ausculation Bilateral, NORMAL BREATHING PATTERN - Cardiovascular Exam Cardiovascular Exam: REGULAR RHYTHM, +S1, +S2 - GI/Abdominal Exam GI & Abdominal Exam: Soft, Normal Bowel Sounds - Exam Additional comments: incontinent - Extremities Exam Additional comments: right hip pain - Neurological Exam Neurological Exam: Awake Additional comments: confuse, agitated - Psychiatric Exam Psychiatric exam: Agitated - Skin Skin Exam: Dry, Normal Color, Warm Assessment and Plan - Assessment and Plan (Free Text) Assessment: An 83 year old male, who was brought to the ER due to right hip pain post fall 2 days prior to admission. History of dementia, Alzheimer's disease, B12 deficiency, benign prostatic hypertrophy, hypertension. X ray showed Right hip acute non displaced fracture of right hip.EKG finding showed ST elevation on anterior precordial leads. Troponin elevated. Recommended cardiac catheterization however ER physician spoke to patient's friend who is the power of transactional attorney and does not want any invasive procedure done. Patient is DNR/DNI. Patient denies chest pain or shortness of breath. Medical treatment. Continue Heparin drip. Oriented to name only. Agitated , Ativan PRN. Low H/H. for blood transfusion of 2 units PRBC. Plan: Awake, agitated Ativan 1 mg given by marketing content specialist rate stable Blood pressure stable For PRBC transfusion for low H/H On Heparin drip, titrate to protocol On ASA 81 mg daily, Lipitor 40 mg daily,Lopressor 25 mg BID Nitropaste every 6 hours, Flomax 0.4 mg daily Continue current treatment Continue current medications DNR/DNI Will follow up Plan and treatment discussed with Dr. Archibald
--- NOTE | 2018-08-09 11:15 | PN ---
SUBJECTIVE: The patient was seen and examined at bedside on the telemetry [place]. He remains delirious and combative and has been placed in soft mitten restraints. He otherwise is hemodynamically stable and clinically unchanged. PHYSICAL EXAMINATION: VITAL SIGNS: Temperature 97.4, pulse 75, blood pressure 128/74, respiratory rate 20, oxygen saturation 99% on room air. GENERAL: A frail elderly man, lying in bed, in no apparent distress. HEENT: PERRL, EOMI. No scleral icterus. Mild conjunctival pallor is noted. Poor dentition is noted. NECK: No JVD. LUNGS: Clear to auscultation. CARDIOVASCULAR: Regular rate and rhythm. Normal S1, S2. ABDOMEN: Normoactive bowel sounds, soft, nontender and nondistended. EXTREMITIES: No edema. Decreased range of motion to right lower extremity. NEUROLOGIC: Awake, alert, confused. Moving all extremities. LABORATORY DATA: Morning labs are pending. ASSESSMENT: The patient is an 83-year-old man with a past medical history of hypertension and Alzheimer dementia who presented s/p fall with resultant right hip fracture and whose hospital course was complicated by STEMI. PLAN: 1. STEMI. Input from Dr. Archibald noted. Continue with conservative medical management with Heparin drip, Aspirin 81 mg p.o. daily, Lipitor 40 mg p.o. daily and Metoprolol 25 mg p.o. b.i.d. TTE is pending to assess for wall motion abnormality. 2. Acute fracture of the right supraacetabular iliac bone. Input from Dr. Paez noted. Continue with care as per Orthopedic Surgery. The patient will be a high-risk candidate for an intermediate risk procedure. 3. Hypertension. Blood pressure controlled. Continue Metoprolol 25 mg p.o. b.i.d. 4. DANNA, likely secondary to prerenal azotemia, resolving. We will discontinue IV fluids and encourage p.o. intake. 5. BPH. Continue Flomax 0.4 mg p.o. daily. 6. Alzheimer dementia. Continue Donepezil 10 mg p.o. daily 7. Prophylaxis. GI prophylaxis not indicated as the patient is eating. DVT prophylaxis not indicated as he is on therapeutic Heparin. CODE STATUS: DNR/DNI. Rashid Simpson MD [facility] # [id number]
[2018-08-09] MEDS ORDERED: Potassium Chloride 20 mEq ER Tab PO ONE (16:13)
--- NOTE | 2018-08-09 18:22 | CARD ---
APPROVED REPORT Date of service: 08/09/2018 EXAM: Two-dimensional and M-mode echocardiogram with Doppler and color Doppler. INDICATION POSSIBLE RECENT STEMI 2D DIMENSIONS Left Atrium (2D)4.4 (1.6-4.0cm)IVSd1.2 (0.7-1.1cm) LVDd4.8 (3.9-5.9cm)PWd1.3 (0.7-1.1cm) M-Mode DIMENSIONS Aortic Root3.70 (2.2-3.7cm)Aortic Cusp Exc.1.80 (1.5-2.0cm) Aortic Valve AoV Peak Fcnwxmtr950.0cm/Jordan Peak GR.8mmHg Mitral Valve MV E Hmblsdia00.0cm/sMV A Druqfkcm918.0cm/sE/A ratio0.6 TDI Lateral E' Peak V8.68cm/sMedial E' Peak V5.95cm/sE/Lateral E'8.9 E/Medial E'12.9 Tricuspid Valve TR Peak Nxgdzbut835mz/sRAP [id number] Peak Gr.37mmHg [id number] LEFT VENTRICLE The left ventricle is normal size. There is mild concentric left ventricular hypertrophy. The systolic function is moderately impaired.EF-30-35% Significant regional wall motion abnormalities noted. There is moderate to severe hypokinesis in the apical anterior wall. Transmitral Doppler flow pattern is Grade III-reversible restrictive diastolic dysfunction. No left ventricle thrombus noted on this study. There is no ventricular septal defect visualized. There is no left ventricular aneurysm. There is no mass noted in the left ventricle. RIGHT VENTRICLE The right ventricle is normal size. There is normal right ventricular wall thickness. The right ventricular systolic function is normal. ATRIA The left atrium is mildly dilated. The right atrium size is normal. The interatrial septum is intact with no evidence for an atrial septal defect. AORTIC VALVE The aortic valve is thickened but opens well. There is mild aortic regurgitation. There is no aortic valvular stenosis. There is no aortic valvular vegetation. MITRAL VALVE The mitral valve is thickened but opens well. Mitral regurgitation is mild. There is no mitral valve stenosis. There is no evidence of mitral valve prolapse. TRICUSPID VALVE The tricuspid valve leaflets are thickened , but open well. There is mild to moderate tricuspid regurgitation.RVSP-47 mmof HG. There is mild pulmonary hypertension. There is no tricuspid valve stenosis. There is no tricuspid valve prolapse or vegetation. PULMONIC VALVE The pulmonic valve is not well visualized. GREAT VESSELS The aortic root is normal in size. The ascending aorta is normal in size. The pulmonary artery is normal. The IVC is normal in size and collapses >50% with inspiration. PERICARDIAL EFFUSION There is no pleural effusion. There is no pericardial effusion. <Conclusion> The left ventricle is normal size. There is mild concentric left ventricular hypertrophy. The systolic function is moderately impaired.EF-30-35% Significant regional wall motion abnormalities noted. There is moderate to severe hypokinesis in the apical anterior wall. There is mild aortic regurgitation. Mitral regurgitation is mild. There is mild to moderate tricuspid regurgitation.RVSP-47 mmof HG. There is mild pulmonary hypertension. The IVC is normal in size and collapses >50% with inspiration. There is no pericardial effusion.
[2018-08-09] MEDS ORDERED: Enoxaparin 40 mg Syringe SC ONE (19:00)
[2018-08-10] MEDS: Nitroglycerin 2% Ointment Foilpak UD TOP SCH ×4 (01:49→19:05)
[2018-08-10 07:25] LABS: BASO # 0.03 K/mm3 (0.0-2.0); BASO % 0.3 % (0.0-3.0); EOS % 0.1 % (1.5-5.0); LYMPH # 0.8 (1.2-3.4); LYMPH % 8.8 % (22.0-35.0); MEAN CELL VOLUME 92.4 fl (80.0-105.0); MEAN CORPUSCULAR HEMOGLOBIN 30.9 pg (25.0-35.0); MEAN CORPUSCULAR HGB CONC 33.4 g/dl (31.0-37.0); MEAN PLATELET VOLUME 9.9 fl (7.0-11.0); MONO # 0.6 (0.1-0.6); MONO % 6.9 % (1.0-6.0); RBC 3.4 10^6/uL (3.5-6.1); RED CELL DISTRIBUTION WIDTH 14.7 % (11.5-14.5); WHITE BLOOD COUNT 8.7 10^3/uL (4.5-11.0)
[2018-08-10 07:28] LABS: HEMOGLOBIN 10.5 g/dL (14.0-18.0)
[2018-08-10 07:43] LABS: ALB/GLOB RATIO 1.2 (1.1-1.8); ALBUMIN 3.8 g/dL (3.0-4.8); ALT/SGPT 24 U/L (7-56); AST/SGOT 55 U/L (17-59); BLOOD UREA NITROGEN 39 mg/dL (7-21); CALCIUM 9.4 mg/dL (8.4-10.5); GFR NON-AFRICAN AMERICAN > 60
--- NOTE | 2018-08-10 08:44 | CP.PCM.PN ---
Subjective - Date & Time of Evaluation Date of Evaluation: 08/10/18 Time of Evaluation: 06:55 - Subjective Subjective: Awake, no distress, confuse Reason for consultation and follow up: Cardiac evaluation of abnormal EKG, EKG reading acute ST elevation NM, denies chest pain, patient demented, recent fall complaining of right hip pain. Seen and examined by me and Dr. Archibald Objective - Vital Signs/Intake and Output Vital Signs (last 24 hours): Temp Pulse Resp BP Pulse Ox 97.6 F 90 18 133/70 99 08/10/18 06:00 08/10/18 06:00 08/10/18 06:00 08/10/18 06:00 08/10/18 06:00 Intake and Output: 08/10/18 08/10/18 06:59 18:59 Intake Total 1187 Balance 1187 - Medications Medications: Current Medications Aspirin (Aspirin Chewable) 81 mg PO DAILY [facility] Last Admin: 08/09/18 15:56 Dose: 81 mg Atorvastatin Calcium (Lipitor) 40 mg PO DIN [facility] Last Admin: 08/09/18 18:17 Dose: 40 mg Donepezil HCl (Aricept) 10 mg PO DAILY [facility] Last Admin: 08/09/18 15:56 Dose: 10 mg Enoxaparin Sodium (Lovenox) 40 mg SC DAILY [facility]; Protocol Metoprolol Tartrate (Lopressor) 25 mg PO BID [facility] Last Admin: 08/09/18 20:22 Dose: Not Given Nitroglycerin (Nitro-Bid 2% Oint) 0.5 ea TOP Q6H [facility] Last Admin: 08/10/18 07:00 Dose: 0.5 ea Tamsulosin HCl (Flomax) 0.4 mg PO DAILY [facility] Last Admin: 08/09/18 15:57 Dose: 0.4 mg - Labs Labs: 08/10/18 07:00 08/10/18 07:00 PT 14.7 SECONDS (9.4-12.5) H 08/07/18 16:37 INR 1.32 08/07/18 16:37 APTT 53.5 Seconds (26.9-38.3) H 08/09/18 01:15 - Constitutional Appears: Non-toxic, No Acute Distress - Head Exam Head Exam: NORMAL INSPECTION, NORMOCEPHALIC - Eye Exam Eye Exam: Normal appearance Pupil Exam: NORMAL ACCOMODATION - ENT Exam ENT Exam: Mucous Membranes Dry - Respiratory Exam Respiratory Exam: Decreased Breath Sounds, Clear to Ausculation Bilateral, NORMAL BREATHING PATTERN - Cardiovascular Exam Cardiovascular Exam: +S1, +S2 - GI/Abdominal Exam GI & Abdominal Exam: Soft, Normal Bowel Sounds - Extremities Exam Additional comments: right hip pain - Neurological Exam Neurological Exam: Awake Additional comments: confuse - Skin Skin Exam: Dry, Normal Color, Warm Assessment and Plan - Assessment and Plan (Free Text) Assessment: An 83 year old male, who was brought to the ER due to right hip pain post fall 2 days prior to admission. History of dementia, Alzheimer's disease, B12 deficiency, benign prostatic hypertrophy, hypertension. X ray showed Right hip acute non displaced fracture of right hip.EKG finding showed ST elevation on anterior precordial leads. Troponin elevated. Recommended cardiac catheterization however ER physician spoke to patient's friend who is the power of criminal defense attorney and does not want any invasive procedure done. Patient is DNR/DNI. Patient denies chest pain or shortness of breath. Medical treatment. Heparin drip discontinued and started on lovenox. Low H/H. post blood transfusion of 2 units PRBC. Cardiac status stable. Plan: Awake, no distress Heart rate stable Blood pressure stable post PRBC transfusion for low H/H, repeat today 10.5/31.4 Heparin drip discontinued and changed to Lovenox SQ On ASA 81 mg daily, Lipitor 40 mg daily,Lopressor 25 mg BID Nitropaste every 6 hours, Flomax 0.4 mg daily Continue current treatment Continue current medications DNR/DNI Discharge planning Will follow up Plan and treatment discussed with Dr. Archibald
[2018-08-10] MEDS: Enoxaparin 40 mg Syringe SC SCH (10:31)
--- NOTE | 2018-08-10 14:32 | PN ---
DATE: 08/10/2018 SUBJECTIVE: The patient is an 83-year-old male in room 277 bed one. He is disoriented x3 in no acute distress. He cannot give a history. There have been no acute events overnight. PHYSICAL EXAMINATION: VITAL SIGNS: Temperature of 97.6, pulse rate of 90, blood pressure 133/70, respiratory rate of 18 with an O2 saturation of 99% on room air. HEENT: Unremarkable. NECK: Supple with full range of motion. No bruits appreciated. LUNGS: Clear to auscultation and percussion bilaterally. ABDOMEN: Soft, it is nontender. EXTREMITIES: Show no deformities. NEUROLOGIC: The patient is disoriented x3, and there are no focal motor deficits. ASSESSMENT AND PLAN: Will call to see if she is able to repair this fracture of the right hand. The impression at this time is a right hip fracture and an ST-elevation myocardial infarction. Manfred Simpson MD
--- NOTE | 2018-08-10 16:43 | CP.PCM.CON ---
History of Present Illness - History of Present Illness History of Present Illness: Orthopedic Consult: Dr. Paez Past Patient History - Infectious Disease Hx of Infectious Diseases: None - Past Social History Smoking Status: Unknown If Ever Smoked - CARDIAC Hx Cardiac Disorders: Yes Hx Angina: No Hx Cardia Arrhythmia: No Hx Circulatory Problems: No Hx Congestive Heart Failure: No Hx Heart Murmur: No Hx Heart Transplant: No Hx Hypercholesterolemia: No Hx Hypertension: Yes Hx Internal Defibrillator: No Hx Mitral Valve Prolapse: No Hx Pacemaker: No Hx Peripheral Edema: No Hx Peripheral Vascular Disease: No - PULMONARY Hx Respiratory Disorders: No Hx Asthma: No Hx Bronchitis: No Hx Chronic Obstructive Pulmonary Disease (COPD): No Hx Emphysema: No Hx Pneumonia: No Hx Respiratory Aspiration: No Hx Respiratory Tract Infection: No Hx Sleep Apnea: No Hx Tuberculosis: No - NEUROLOGICAL Hx Neurological Disorder: Yes Hx Alzheimer's Disease: Yes HX Cerebrovascular Accident: No Hx Dementia: Yes Hx Dizziness: No Hx Meningitis: No Hx Migraine: No Hx Parkinson's Disease: No Hx Seizures: No Hx Transient Ischemic Attacks (TIA): No - HEENT Hx HEENT Problems: No Hx Blind: No Hx Cataracts: No Hx Deafness: No Hx Difficulty Chewing: No Hx Epistaxis: No Hx Glaucoma: No Hx Macular Degeneration: No - RENAL Hx Chronic Kidney Disease: No Hx Dialysis: No Hx Kidney Stones: No Hx Neurogenic Bladder: No Hx Pyelonephritis: No Hx Renal (Kidney) Cancer: No Hx Renal Failure: No - ENDOCRINE/METABOLIC Hx Endocrine Disorders: No Hx Adrenal Cancer: No Hx Diabetes Insipidus: No Hx Diabetes Mellitus Type 1: No Hx Diabetes Mellitus Type 2: No Hx Hyperthyroidism: No Hx Hypothyroidism: No Hx Systemic Lupus Erythematosus: No - HEMATOLOGICAL/ONCOLOGICAL Hx Blood Disorders: No Hx AIDS: No Hx Anemia: No Hx Cancer: No Hx Chemotherapy: No Hx Cirrhosis: No Hx Hemophilia: No Hx Hepatitis A: No Hx Hepatitis B: No Hx Hepatitis C: No Hx Human Immunodeficiency Virus (HIV): No Hx Metastesis: No Hx Shingles: No Hx Sickle Cell Disease: No Hx Unexplained Bleeding: No - INTEGUMENTARY Hx Dermatological Problems: No Hx Basil Cell: No Hx Eczema: No Hx Melanoma: No Hx Psoriasis: No Hx Squamous Cell: No - MUSCULOSKELETAL/RHEUMATOLOGICAL Hx Musculoskeletal Disorders: Yes Hx Arthritis: No Hx Back Pain: No Hx Degenerative Joint Disease: No Hx Falls: Yes Hx Fractures: No Hx Gout: No Hx Herniated Disk: No Hx Myasthenia Gravis: No Hx Osteoarthritis: No Hx Osteomyelitis: No Hx Osteoporosis: No Hx Rhabdomyolysis: No Hx Spinal Stenosis: No Hx Unsteady Gait: No - GASTROINTESTINAL Hx Gastrointestinal Disorders: No Hx Colostomy: No Hx Crohn's Disease: No Hx Diverticulitis: No Hx Gall Bladder Disease: No Hx Gastroesophageal Reflux: No Hx Ileostomy: No Hx Liver Failure: No Hx Pancreatitis: No HX Swallowing Problems: No Hx Ulcer: No - GENITOURINARY/GYNECOLOGICAL Hx Genitourinary Disorders: Yes Hx Hematuria: No Hx Incontinence: Yes Hx Prostate Problems: No Hx Sexually Transmitted Disorders: No Hx Urinary Tract Infection: No - PSYCHIATRIC Hx Psychophysiologic Disorder: No Hx Anxiety: No Hx Bipolar Disorder: No Hx Depression: No Hx Emotional Abuse: No Hx Hallucinations: No Hx Panic Symptoms: No Hx Paranoia: No Hx Post Traumatic Stress Disorder: No Hx Psychosis: No Hx Physical Abuse: No Hx Schizophrenia: No Hx Sexual Abuse: No Hx Substance Use: No - SURGICAL HISTORY Hx Surgeries: No (unknown) Hx Cardiac Catheterization: No Hx Coronary Stent: No - ANESTHESIA Hx Anesthesia Reactions: No Hx Malignant Hyperthermia: No Meds Allergies/Adverse Reactions: Allergies Allergy/AdvReac Type Severity Reaction Status Date / Time No Known Allergies Allergy Verified 08/07/18 15:25 - Medications Medications: Current Medications Aspirin (Aspirin Chewable) 81 mg PO DAILY [facility] Last Admin: 08/10/18 10:29 Dose: 81 mg Atorvastatin Calcium (Lipitor) 40 mg PO DIN [facility] Last Admin: 08/09/18 18:17 Dose: 40 mg Donepezil HCl (Aricept) 10 mg PO DAILY [facility] Last Admin: 08/10/18 10:30 Dose: 10 mg Enoxaparin Sodium (Lovenox) 40 mg SC DAILY [facility]; Protocol Last Admin: 08/10/18 10:31 Dose: 40 mg Metoprolol Tartrate (Lopressor) 25 mg PO BID [facility] Last Admin: 08/10/18 10:30 Dose: 25 mg Nitroglycerin (Nitro-Bid 2% Oint) 0.5 ea TOP Q6H [facility] Last Admin: 08/10/18 13:09 Dose: 0.5 ea Tamsulosin HCl (Flomax) 0.4 mg PO DAILY [facility] Last Admin: 08/10/18 10:30 Dose: 0.4 mg Results - Vital Signs Recent Vital Signs: Last Vital Signs Temp 98.2 F 08/10/18 12:00 Pulse 101 H 08/10/18 14:00 Resp 18 08/10/18 12:00 BP 151/81 H 08/10/18 12:00 Pulse Ox 99 08/10/18 06:00 - Labs Result Diagrams: 08/10/18 07:00 08/10/18 07:00 Labs: Laboratory Results - last 24 hr 08/09/18 08/10/18 08/10/18 10:15 07:00 07:00 WBC 8.7 D RBC 3.40 L Hgb 10.5 L D Hct 31.4 L MCV 92.4 MCH 30.9 MCHC 33.4 RDW 14.7 H Plt Count 154 MPV 9.9 Neut % (Auto) 83.9 H Lymph % (Auto) 8.8 L [place] % (Auto) 6.9 H Eos % (Auto) 0.1 L Baso % (Auto) 0.3 Lymph # (Auto) 0.8 L [place] # (Auto) 0.6 Eos # (Auto) 0.0 Baso # (Auto) 0.03 Absolute Neuts (auto) 7.28 H Sodium 151 H Potassium 3.7 Chloride 120 H Carbon Dioxide 23 Anion Gap 12 BUN 39 H Creatinine 1.0 Est GFR ( Amer) > 60 Est GFR (Non-Af Amer) > 60 Random Glucose 109 Calcium 9.4 Total Bilirubin 2.5 H AST 55 ALT 24 Alkaline Phosphatase 68 Total Protein 7.1 Albumin 3.8 Globulin 3.3 Albumin/Globulin Ratio 1.2 Blood Type A POSITIVE Antibody Screen Negative Crossmatch See Detail BBK History Checked No verified bt - Impressions Impression: Accession No. : [id number] Patient Name / ID : FAY TORRES / [id number] Exam Date : 08/07/2018 12:24:13 ( Approved ) Study Comment : Sex / Age : M / 83Y Creator : Shania Gaytan MD Dictator : Shania Gaytan MD Graves Registration Specialist : Tin Can Feeder : Shania Gaytan MD Approver2 : Report Date : 08/07/2018 13:30:22 My Comment : PROCEDURE: Right Hip Radiographs. HISTORY: fall COMPARISON: None. FINDINGS: BONES: There is an acute nondisplaced fracture in the right supra-acetabular iliac bone. There is diffuse bone demineralization. No bone destruction. JOINTS: Mild degenerative osteoarthrosis in the left hip joint. The sacroiliac joints are normal. SOFT TISSUES: Normal. OTHER FINDINGS: Multiple small phleboliths in the pelvis. IMPRESSION: Acute nondisplaced fracture in the right supra-acetabular iliac bone. The final report is tagged to the PA review folder. Accession No. : [id number] Patient Name / ID : FAY TORRES / [id number] Exam Date : 08/08/2018 11:42:47 ( Approved ) Study Comment : Sex / Age : M / 83Y Creator : Jono Stock MD Dictator : Jono Stock MD Graves Registration Specialist : Tin Can Feeder : Jono Stock MD Approver2 : Report Date : 08/08/2018 14:02:50 My Comment : Date of service: 08/08/2018 PROCEDURE: CT pelvis/right hip HISTORY: Fall/right hip fracture. . COMPARISON: August 07, 2018. Plain film radiographs right hip TECHNIQUE: 2.5 mm axial acquisition and display. Coronal and sagittal reconstructions. Dose report (mGy-cm): 185.56. FINDINGS: Fracture through the right pelvic ring. Slightly displaced ischial fracture. Comminuted fracture of the pubis at its articulation with the anterior aspect of the acetabulum Fractures through the anterior aspect of the acetabulum and the posterior aspect of the acetabulum. There is also fracture fragment through the lateral acetabular wall. No femoral head/proximal femur fractures identified. Evidence of hemarthrosis without subluxation or dislocation. Hemorrhage also identified in adjacent pelvic musculature. IMPRESSION: Complex pelvic ring fracture described in greater detail above. Multipart burst fracture likely the sequela of direct impaction by the femoral head on the acetabulum. This involves medial, anterior and posterior aspects of the acetabular complex. The superior component extends laterally, to the super acetabular portion of the right iliac bone. At this juncture, there is destruction of bone and intramedullary soft tissue component suggesting in part a pathologic fracture. Assessment & Plan (1) Pelvic ring fracture Assessment and Plan: -Dr. Paez recommends referral to pelvic fracture specialist Dr. Ousmane Montgomery due to the complexity of the pelvic fracture, as this is beyond his scope of practice. -NWB, bedrest -Ice Status: Acute
--- NOTE | 2018-08-10 16:44 | CP.PCM.PN ---
Subjective - Date & Time of Evaluation Date of Evaluation: 08/10/18 Time of Evaluation: 16:44 - Subjective Subjective: Orthopedic progress note: Dr. Peaz Patient seen and examined at bedside comfortable. Poor historian due to dementia. Alert, responds inappropriately to cues. Had recent MS due to positive cardiac enzymes. No acute events overnight. Objective - Vital Signs/Intake and Output Vital Signs (last 24 hours): Temp Pulse Resp BP Pulse Ox 98.2 F 101 H 18 151/81 H 99 08/10/18 12:00 08/10/18 14:00 08/10/18 12:00 08/10/18 12:00 08/10/18 06:00 Intake and Output: 08/10/18 08/10/18 06:59 18:59 Intake Total 1187 Balance 1187 - Medications Medications: Current Medications Aspirin (Aspirin Chewable) 81 mg PO DAILY [facility] Last Admin: 08/10/18 10:29 Dose: 81 mg Atorvastatin Calcium (Lipitor) 40 mg PO DIN [facility] Last Admin: 08/09/18 18:17 Dose: 40 mg Donepezil HCl (Aricept) 10 mg PO DAILY [facility] Last Admin: 08/10/18 10:30 Dose: 10 mg Enoxaparin Sodium (Lovenox) 40 mg SC DAILY [facility]; Protocol Last Admin: 08/10/18 10:31 Dose: 40 mg Metoprolol Tartrate (Lopressor) 25 mg PO BID [facility] Last Admin: 08/10/18 10:30 Dose: 25 mg Nitroglycerin (Nitro-Bid 2% Oint) 0.5 ea TOP Q6H [facility] Last Admin: 08/10/18 13:09 Dose: 0.5 ea Tamsulosin HCl (Flomax) 0.4 mg PO DAILY [facility] Last Admin: 08/10/18 10:30 Dose: 0.4 mg - Labs Labs: 08/10/18 07:00 08/10/18 07:00 PT 14.7 SECONDS (9.4-12.5) H 08/07/18 16:37 INR 1.32 08/07/18 16:37 APTT 53.5 Seconds (26.9-38.3) H 08/09/18 01:15 - Extremities Exam Additional comments: RLE: no tenderness to lateral hip/groin no swelling/masses/lesions motor EHL/FHL intact unable to obtain sensation test due to dementia pedal pulse intact calves soft NT b/l Assessment and Plan (1) Pelvic ring fracture Assessment & Plan: -Dr. Paez recommends referral to Dr. Ousmane Montgomery, trauma orthopedist who specialized with complex pelvic fractures, if POA agrees. The complexity of the pelvic fracture is beyond Dr. Paez's scope of practice. This was relayed to Dr. Manfred Simpson. -DVT ppx -NWB, bedrest -decubitus ulcer precaution -Ice R hip -above d/w Dr. Paez in agreement -please reconsult as needed -Thank you for this interesting consult Status: Acute Radiology Interpretation - Notes: Notes:: Accession No. : [id number] Patient Name / ID : FAY TORRES / [id number] Exam Date : 08/08/2018 11:42:47 ( Approved ) Study Comment : Sex / Age : M / 83Y Creator : Jono Stock MD Dictator : Jono Stock MD [employer] O[employer] Mason : Wing Coverer : Jono Stock MD Approver2 : Report Date : 08/08/2018 14:02:50 My Comment : Date of service: 08/08/2018 PROCEDURE: CT pelvis/right hip HISTORY: Fall/right hip fracture. . COMPARISON: August 07, 2018. Plain film radiographs right hip TECHNIQUE: 2.5 mm axial acquisition and display. Coronal and sagittal reconstructions. Dose report (mGy-cm): 185.56. FINDINGS: Fracture through the right pelvic ring. Slightly displaced ischial fracture. Comminuted fracture of the pubis at its articulation with the anterior aspect of the acetabulum Fractures through the anterior aspect of the acetabulum and the posterior aspect of the acetabulum. There is also fracture fragment through the lateral acetabular wall. No femoral head/proximal femur fractures identified. Evidence of hemarthrosis without subluxation or dislocation. Hemorrhage also identified in adjacent pelvic musculature. IMPRESSION: Complex pelvic ring fracture described in greater detail above. Multipart burst fracture likely the sequela of direct impaction by the femoral head on the acetabulum. This involves medial, anterior and posterior aspects of the acetabular complex. The superior component extends laterally, to the super acetabular portion of the right iliac bone. At this juncture, there is destruction of bone and intramedullary soft tissue component suggesting in part a pathologic fracture.
[2018-08-10] MEDS ORDERED: Potassium Chloride 20 mEq ER Tab PO ONE (17:41)
[2018-08-10] MEDS ORDERED: Sodium Chloride 0.45% 1,000 ML IV ONE (17:42)
[2018-08-11] MEDS: Nitroglycerin 2% Ointment Foilpak UD TOP SCH ×4 (03:30→18:55)
[2018-08-11 07:23] LABS: BASO # 0.02 K/mm3 (0.0-2.0); BASO % 0.3 % (0.0-3.0); EOS % 0.4 % (1.5-5.0); HEMOGLOBIN 9.3 g/dL (14.0-18.0); LYMPH # 0.8 (1.2-3.4); LYMPH % 10.8 % (22.0-35.0); MEAN CELL VOLUME 92.9 fl (80.0-105.0); MEAN CORPUSCULAR HEMOGLOBIN 29.9 pg (25.0-35.0); MEAN CORPUSCULAR HGB CONC 32.2 g/dl (31.0-37.0); MEAN PLATELET VOLUME 9.3 fl (7.0-11.0); MONO # 0.7 (0.1-0.6); MONO % 8.7 % (1.0-6.0); RBC 3.11 10^6/uL (3.5-6.1); RED CELL DISTRIBUTION WIDTH 14.8 % (11.5-14.5); WHITE BLOOD COUNT 7.8 10^3/uL (4.5-11.0)
[2018-08-11 07:52] LABS: ALBUMIN 3.3 g/dL (3.0-4.8); ALT/SGPT 27 U/L (7-56); AST/SGOT 44 U/L (17-59); BLOOD UREA NITROGEN 34 mg/dL (7-21); CALCIUM 8.9 mg/dL (8.4-10.5); GFR NON-AFRICAN AMERICAN > 60
[2018-08-11] MEDS ORDERED: WATER IV SCH (08:45)
[2018-08-11] MEDS ORDERED: D5W IV SCH (08:45)
[2018-08-11] MEDS ORDERED: POTASSIUM CH IV SCH (08:45)
[2018-08-11] MEDS ORDERED: DEXTROSE IV SCH (08:45)
[2018-08-11] MEDS: Enoxaparin 40 mg Syringe SC SCH (10:12)
--- NOTE | 2018-08-11 10:19 | PN ---
SUBJECTIVE: The patient was seen and examined at bedside on the telemetry [place]. No acute events overnight. He remains afebrile, hemodynamically stable and clinically unchanged. After evaluation with Dr. Paez of Orthopedic Surgery, recommendations were made for transfer to [facility] for evaluation with Dr. Montgomery for the patient's complex pelvic fracture. OBJECTIVE: VITAL SIGNS: Temperature 97.9, pulse 96, blood pressure 152/82, respiratory rate 19, oxygen saturation 96% on room air. GENERAL: Frail, cachectic, chronically ill-appearing man, lying in bed, in no apparent distress. HEENT: PERRL, EOMI. No scleral icterus. Mild conjunctival pallor is noted. Poor dentition is noted. NECK: No JVD. LUNGS: Clear to auscultation. CARDIOVASCULAR: Regular rate and rhythm. Normal S1, S2. ABDOMEN: Soft, nontender, nondistended. Normoactive bowel sounds. EXTREMITIES: No edema. NEUROLOGIC: Awake and alert, confused, not able to answer questions appropriately. Moving all extremities. LABORATORY DATA: WBC 7.8 with 80% neutrophils, hemoglobin 9.3, hematocrit 29, platelets 161. Sodium 155, potassium 3.5, chloride 125, bicarb 25, BUN 34, creatinine 1.1, glucose 109. DIAGNOSTIC STUDIES: 1. TTE demonstrated concentric LVH with a moderately impaired systolic function with an EF of 30-35% with significant regional wall motion abnormalities with [id number] hypokinesis in the apical anterior wall. ASSESSMENT: The patient is an 83-year-old man with a past medical history of hypertension and Alzheimer dementia who presented s/p fall with resultant right hip fracture and whose hospital course was complicated by STEMI. PLAN: 1. STEMI. Input from Dr. Archibald noted. TTE reviewed. Continue with conservative medical management with Aspirin 81 mg p.o. daily, Lipitor 40 mg p.o. daily and Metoprolol 25 mg p.o. b.i.d. 2. Acute fracture of the right supraacetabular iliac bone. Input from Dr. Paez noted and recommendations have been made for transfer to [facility] for evaluation with Dr. Montgomery. We will coordinate with the assistant case manager and social workers to see if this is feasible. The patient will be a high-risk candidate for an intermediate risk procedure. 3. Hypertension. Blood pressure controlled. Continue Metoprolol 25 mg p.o. b.i.d. 4. DANNA, likely secondary to prerenal azotemia, resolved. Continue to encourage p.o. intake and continue with gentle IV fluid support as needed. 5. BPH. Continue Flomax 0.4 mg p.o. daily. 6. Alzheimer dementia. Continue Donepezil 10 mg p.o. daily. 7. Prophylaxis. GI prophylaxis is not indicated as the patient is eating. DVT prophylaxis is not indicated as he remains on Lovenox. CODE STATUS: DNR/DNI. Rashid Simpson MD MTDMagdi
[2018-08-12] MEDS: Nitroglycerin 2% Ointment Foilpak UD TOP SCH ×4 (00:08→18:18)
[2018-08-12 07:57] LABS: BASO # 0.01 K/mm3 (0.0-2.0); BASO % 0.1 % (0.0-3.0); EOS # 0.1 (0.0-0.7); EOS % 1.1 % (1.5-5.0); LYMPH # 1.2 (1.2-3.4); LYMPH % 11.8 % (22.0-35.0); MEAN CORPUSCULAR HEMOGLOBIN 31.3 pg (25.0-35.0); MEAN CORPUSCULAR HGB CONC 33.3 g/dl (31.0-37.0); MEAN PLATELET VOLUME 9.5 fl (7.0-11.0); MONO # 0.6 (0.1-0.6); RBC 3.19 10^6/uL (3.5-6.1); RED CELL DISTRIBUTION WIDTH 14.9 % (11.5-14.5)
[2018-08-12 08:22] LABS: ALB/GLOB RATIO 0.9 (1.1-1.8); ALBUMIN 3.3 g/dL (3.0-4.8); ALT/SGPT 28 U/L (7-56); AST/SGOT 44 U/L (17-59); BLOOD UREA NITROGEN 30 mg/dL (7-21); CALCIUM 8.8 mg/dL (8.4-10.5); GFR NON-AFRICAN AMERICAN > 60
[2018-08-12] MEDS: Enoxaparin 40 mg Syringe SC SCH (09:59)
--- NOTE | 2018-08-12 11:01 | CP.PCM.PN ---
Subjective - Date & Time of Evaluation Date of Evaluation: 08/12/18 Time of Evaluation: 08:00 - Subjective Subjective: SUBJECTIVE: The patient was seen and examined at bedside on the telemetry [place]. No acute events overnight. He remains afebrile, hemodynamically stable and clinically unchanged OBJECTIVE: VITAL SIGNS: Temperature 98.1, pulse 86, blood pressure 130/76, respiratory rate 20, oxygen saturation 96% on room air. GENERAL: Frail, cachectic, chronically ill-appearing man, lying in bed, in no apparent distress. HEENT: PERRL, EOMI. No scleral icterus. Mild conjunctival pallor is noted. Poor dentition is noted. NECK: No JVD. LUNGS: Clear to auscultation. CARDIOVASCULAR: Regular rate and rhythm. Normal S1, S2. ABDOMEN: Soft, nontender, nondistended. Normoactive bowel sounds. EXTREMITIES: No edema. NEUROLOGIC: Awake and alert, confused, not able to answer questions appropriately. Moving all extremities. LABORATORY DATA: WBC 10 with 81% neutrophils, hemoglobin 10, hematocrit 30, platelets 176. Sodium 153, potassium 3.5, chloride 121, bicarb 25, BUN 30, creatinine 1, glucose 116. ASSESSMENT: The patient is an 83-year-old man with a past medical history of hypertension and Alzheimer dementia who presented s/p fall with resultant right hip fracture and whose hospital course was complicated by STEMI. PLAN: 1. STEMI. Input from Dr. Archibald noted. TTE reviewed. Continue with conservative medical management with Aspirin 81 mg p.o. daily, Lipitor 40 mg p.o. daily and Metoprolol 25 mg p.o. b.i.d. 2. Acute fracture of the right supraacetabular iliac bone. Input from Dr. Paez noted and recommendations have been made for transfer to [facility] for evaluation with Dr. Montgomery. We will coordinate with the case manager specialist and social workers to see if this is feasible. The patient will be a high-risk candidate for an intermediate risk procedure. 3. Hypertension. Blood pressure controlled. Continue Metoprolol 25 mg p.o. b.i.d. 4. DANNA, likely secondary to prerenal azotemia, resolved. Continue to encourage p.o. intake and continue with gentle IV fluid support as needed. 5. BPH. Continue Flomax 0.4 mg p.o. daily. 6. Alzheimer dementia. Continue Donepezil 10 mg p.o. daily. 7. Prophylaxis. GI prophylaxis is not indicated as the patient is eating. DVT prophylaxis is not indicated as he remains on Lovenox. CODE STATUS: DNR/DNI. Objective - Vital Signs/Intake and Output Vital Signs (last 24 hours): Temp Pulse Resp BP Pulse Ox 98.1 F 20 L 86 H 130/73 97 08/12/18 06:00 08/12/18 06:00 08/12/18 06:00 08/12/18 06:00 08/10/18 18:00 Intake and Output: 08/12/18 08/12/18 06:59 18:59 Intake Total 0 Balance 0 - Medications Medications: Current Medications Aspirin (Aspirin Chewable) 81 mg PO DAILY [facility] Last Admin: 08/12/18 09:58 Dose: 81 mg Atorvastatin Calcium (Lipitor) 40 mg PO DIN [facility] Last Admin: 08/11/18 17:33 Dose: 40 mg Donepezil HCl (Aricept) 10 mg PO DAILY [facility] Last Admin: 08/12/18 09:59 Dose: 10 mg Enoxaparin Sodium (Lovenox) 40 mg SC DAILY [facility]; Protocol Last Admin: 08/12/18 09:59 Dose: 40 mg Potassium Chloride 20 meq/ (Dextrose) 1,010 mls @ 75 mls/hr IV .[id number] [facility] Last Admin: 08/12/18 00:07 Dose: 75 mls/hr Metoprolol Tartrate (Lopressor) 25 mg PO BID [facility] Last Admin: 08/12/18 09:59 Dose: 25 mg Nitroglycerin (Nitro-Bid 2% Oint) 0.5 ea TOP Q6H [facility] Last Admin: 08/12/18 10:06 Dose: 0.5 ea Tamsulosin HCl (Flomax) 0.4 mg PO DAILY [facility] Last Admin: 08/12/18 10:06 Dose: 0.4 mg - Labs Labs: 08/12/18 07:00 08/12/18 07:00 PT 14.7 SECONDS (9.4-12.5) H 08/07/18 16:37 INR 1.32 08/07/18 16:37 APTT 53.5 Seconds (26.9-38.3) H 08/09/18 01:15
[2018-08-13] MEDS: Nitroglycerin 2% Ointment Foilpak UD TOP SCH ×4 (00:22→21:10)
--- NOTE | 2018-08-13 06:36 | CP.PCM.PN ---
Subjective - Date & Time of Evaluation Date of Evaluation: 08/13/18 Time of Evaluation: 06:30 - Subjective Subjective: Awake, no distress, confuse Reason for consultation and follow up: Cardiac evaluation of abnormal EKG, EKG reading acute ST elevation [place], denies chest pain, patient demented, recent fall complaining of right hip pain, Seen and examined by me and Dr. Archibald Objective - Vital Signs/Intake and Output Vital Signs (last 24 hours): Temp Pulse Resp BP Pulse Ox 98.7 F 82 20 120/67 97 08/13/18 00:01 08/13/18 02:00 08/13/18 00:01 08/13/18 00:01 08/13/18 00:01 Intake and Output: 08/12/18 08/13/18 18:59 06:59 Intake Total 460 Balance 460 - Medications Medications: Current Medications Aspirin (Aspirin Chewable) 81 mg PO DAILY [facility] Last Admin: 08/12/18 09:58 Dose: 81 mg Atorvastatin Calcium (Lipitor) 40 mg PO DIN [facility] Last Admin: 08/12/18 18:18 Dose: 40 mg Donepezil HCl (Aricept) 10 mg PO DAILY [facility] Last Admin: 08/12/18 09:59 Dose: 10 mg Enoxaparin Sodium (Lovenox) 40 mg SC DAILY [facility]; Protocol Last Admin: 08/12/18 09:59 Dose: 40 mg Potassium Chloride 20 meq/ (Dextrose) 1,010 mls @ 75 mls/hr IV .[id number] [facility] Last Admin: 08/13/18 05:08 Dose: 75 mls/hr Metoprolol Tartrate (Lopressor) 25 mg PO BID [facility] Last Admin: 08/12/18 18:18 Dose: 25 mg Nitroglycerin (Nitro-Bid 2% Oint) 0.5 ea TOP Q6H [facility] Last Admin: 08/13/18 06:00 Dose: 0.5 ea Tamsulosin HCl (Flomax) 0.4 mg PO DAILY [facility] Last Admin: 08/12/18 10:06 Dose: 0.4 mg - Labs Labs: 08/12/18 07:00 08/12/18 07:00 PT 14.7 SECONDS (9.4-12.5) H 08/07/18 16:37 INR 1.32 08/07/18 16:37 APTT 53.5 Seconds (26.9-38.3) H 08/09/18 01:15 - Constitutional Appears: Non-toxic, No Acute Distress - Head Exam Head Exam: NORMAL INSPECTION, NORMOCEPHALIC - Eye Exam Eye Exam: Normal appearance Pupil Exam: NORMAL ACCOMODATION - ENT Exam ENT Exam: Mucous Membranes Dry - Respiratory Exam Respiratory Exam: Decreased Breath Sounds, Clear to Ausculation Bilateral, NORMAL BREATHING PATTERN - Cardiovascular Exam Cardiovascular Exam: REGULAR RHYTHM, +S1, +S2 - GI/Abdominal Exam GI & Abdominal Exam: Soft, Normal Bowel Sounds - Extremities Exam Extremities Exam: Full ROM, Normal Capillary Refill - Neurological Exam Neurological Exam: Alert, Awake Additional comments: confuse - Skin Skin Exam: Dry, Normal Color, Warm Assessment and Plan - Assessment and Plan (Free Text) Assessment: An 83 year old male, who was brought to the ER due to right hip pain post fall 2 days prior to admission. History of dementia, Alzheimer's disease, B12 deficiency, benign prostatic hypertrophy, hypertension. X ray showed Right hip acute non displaced fracture of right hip.EKG finding showed ST elevation on anterior precordial leads. Troponin elevated. Recommended cardiac catheterization however ER physician spoke to patient's friend who is the power of workers compensation attorney and does not want any invasive procedure done. Patient is DNR/DNI. Patient denies chest pain or shortness of breath. Medical treatment. Heparin drip discontinued and started on lovenox. Post blood transfusion of 2 units PRBC for low H/H.Cardiac status stable. Swallowing evaluation done mild orophary ngeal dysphagia. poor oral intake, started on IV fluids. Discontinue telemetry. Plan: Awake, no distress Heart rate stable Blood pressure stable Cardiac status stable Discontinue telemetry On ASA 81 mg daily, Lipitor 40 mg daily,Lopressor 25 mg BID Nitropaste every 6 hours, Flomax 0.4 mg daily Continue current treatment Continue current medications Aspiration precaution DNR/DNI Discharge planning Will follow up Plan and treatment discussed with Dr. Archibald
[2018-08-13 07:33] LABS: BASO # 0.01 K/mm3 (0.0-2.0); BASO % 0.1 % (0.0-3.0); EOS # 0.2 (0.0-0.7); EOS % 1.8 % (1.5-5.0); HEMOGLOBIN 9.1 g/dL (14.0-18.0); LYMPH % 10.6 % (22.0-35.0); MEAN CELL VOLUME 94.3 fl (80.0-105.0); MEAN CORPUSCULAR HEMOGLOBIN 30.7 pg (25.0-35.0); MEAN CORPUSCULAR HGB CONC 32.6 g/dl (31.0-37.0); MEAN PLATELET VOLUME 9.5 fl (7.0-11.0); MONO # 0.7 (0.1-0.6); MONO % 7.2 % (1.0-6.0); RBC 2.96 10^6/uL (3.5-6.1); WHITE BLOOD COUNT 9.4 10^3/uL (4.5-11.0)
[2018-08-13 08:04] LABS: ALB/GLOB RATIO 0.9 (1.1-1.8); ALBUMIN 2.7 g/dL (3.0-4.8); ALT/SGPT 24 U/L (7-56); AST/SGOT 37 U/L (17-59); BLOOD UREA NITROGEN 33 mg/dL (7-21); CALCIUM 8.2 mg/dL (8.4-10.5); GFR NON-AFRICAN AMERICAN > 60
--- NOTE | 2018-08-13 09:16 | PN ---
SUBJECTIVE: The patient was seen and examined at bedside on the telemetry [place]. No acute events overnight. He remains afebrile, hemodynamically stable and clinically unchanged. OBJECTIVE: VITAL SIGNS: Temperature 98.4, pulse 90, blood pressure 117/63, respiratory rate 20, oxygen saturation 98% on room air. GENERAL: Frail, cachectic, chronically ill-appearing man, lying in bed, in no apparent distress. HEENT: PERRL, EOMI. No scleral icterus. Mild conjunctival pallor is noted. Poor dentition is noted. Dry mucous membranes are noted. NECK: No JVD. LUNGS: Clear to auscultation. CARDIOVASCULAR: Regular rate and rhythm. Normal S1, S2. ABDOMEN: Normoactive bowel sounds, soft, nontender, nondistended. EXTREMITIES: No edema. NEUROLOGIC: Awake and alert, confused, not able to answer questions appropriately. Moving all extremities. LABORATORY DATA: WBC 9.4 with 80% neutrophils, hemoglobin 9.1, hematocrit 28, platelets 172. Sodium 149, potassium 3.5, chloride 118, bicarb 25, BUN 33, creatinine 1, glucose 118. ASSESSMENT: The patient is an 83-year-old man with a past medical history of hypertension and Alzheimer dementia who presented s/ fall with resultant right hip fracture and whose hospital course was complicated by STEMI. PLAN: 1. STEMI. Input from Dr. Archibald noted. Continue with conservative medical management with Aspirin 81 mg p.o. daily, Lipitor 40 mg p.o. daily and Metoprolol 25 mg p.o. b.i.d. 2. Acute fracture of the right supraacetabular iliac bone. I spoke with Dr. Montgomery at [facility] and he is agreeable to accepting the patient for surgical evaluation. We will coordinate with the staff at [facility] to facilitate this transfer. His POA Lainaortega Gomesa (cell #[phone]) is agreeable with the transfer. 3. Hypertension. Blood pressure controlled. Continue Metoprolol 25 mg p.o. b.i.d. 4. DANNA, likely secondary to prerenal azotemia, resolved. 5. Hypernatremia, trending favorably. Continue with the current IV fluid hydration. 6. BPH. Continue Flomax 0.4 mg p.o. daily. 7. Alzheimer dementia. Continue Donepezil 10 mg p.o. daily. 8. Prophylaxis. GI prophylaxis not indicated as the patient is eating. DVT prophylaxis not indicated as he remains on Lovenox. CODE STATUS: DNR/DNI. Rashid Simpson MD [facility]
[2018-08-13] MEDS: Enoxaparin 40 mg Syringe SC SCH (10:07)
[2018-08-14] MEDS: Nitroglycerin 2% Ointment Foilpak UD TOP SCH ×4 (01:11→21:12)
--- NOTE | 2018-08-14 06:45 | CP.PCM.PN ---
Subjective - Date & Time of Evaluation Date of Evaluation: 08/14/18 Time of Evaluation: 06:30 - Subjective Subjective: Awake, alert, no distress, disoriented Reason for consultation and follow up: Cardiac evaluation of abnormal EKG, EKG reading acute ST elevation [place], denies chest pain, patient demented, recent fall complaining of right hip pain, Seen and examined by me and Dr. Archibald Objective - Vital Signs/Intake and Output Vital Signs (last 24 hours): Temp Pulse Resp BP Pulse Ox 97.5 F L 79 18 111/55 L 98 08/13/18 12:00 08/13/18 12:00 08/13/18 12:00 08/13/18 17:10 08/13/18 06:00 Intake and Output: 08/13/18 08/14/18 18:59 06:59 Intake Total 240 Balance 240 - Medications Medications: Current Medications Aspirin (Aspirin Chewable) 81 mg PO DAILY [facility] Last Admin: 08/13/18 10:03 Dose: 81 mg Atorvastatin Calcium (Lipitor) 40 mg PO DIN [facility] Last Admin: 08/13/18 17:10 Dose: 40 mg Donepezil HCl (Aricept) 10 mg PO DAILY [facility] Last Admin: 08/13/18 10:07 Dose: 10 mg Enoxaparin Sodium (Lovenox) 40 mg SC DAILY [facility]; Protocol Last Admin: 08/13/18 10:07 Dose: 40 mg Potassium Chloride 40 meq/ (Dextrose) 1,020 mls @ 75 mls/hr IV .[id number] [facility] Last Admin: 08/14/18 01:52 Dose: 75 mls/hr Metoprolol Tartrate (Lopressor) 25 mg PO BID [facility] Last Admin: 08/13/18 17:10 Dose: 25 mg Nitroglycerin (Nitro-Bid 2% Oint) 0.5 ea TOP Q6H [facility] Last Admin: 08/14/18 01:11 Dose: 0.5 ea Tamsulosin HCl (Flomax) 0.4 mg PO DAILY [facility] Last Admin: 08/13/18 10:03 Dose: 0.4 mg - Labs Labs: 08/13/18 07:15 08/13/18 07:15 PT 14.7 SECONDS (9.4-12.5) H 08/07/18 16:37 INR 1.32 08/07/18 16:37 APTT 53.5 Seconds (26.9-38.3) H 08/09/18 01:15 - Constitutional Appears: Non-toxic, No Acute Distress - Head Exam Head Exam: NORMAL INSPECTION, NORMOCEPHALIC - Eye Exam Eye Exam: Normal appearance Pupil Exam: NORMAL ACCOMODATION - ENT Exam ENT Exam: Mucous Membranes Moist - Respiratory Exam Respiratory Exam: Decreased Breath Sounds, Clear to Ausculation Bilateral, NORMAL BREATHING PATTERN - Cardiovascular Exam Cardiovascular Exam: +S1, +S2 - GI/Abdominal Exam GI & Abdominal Exam: Soft, Normal Bowel Sounds - Extremities Exam Extremities Exam: Normal Capillary Refill - Neurological Exam Neurological Exam: Alert, Awake - Psychiatric Exam Additional comments: calm, oriented to self - Skin Skin Exam: Dry, Normal Color, Warm Assessment and Plan - Assessment and Plan (Free Text) Assessment: An 83 year old male, who was brought to the ER due to right hip pain post fall 2 days prior to admission. History of dementia, Alzheimer's disease, B12 deficiency, benign prostatic hypertrophy, hypertension. X ray showed Right hip acute non displaced fracture of right hip.EKG finding showed ST elevation on anterior precordial leads. Troponin elevated. Recommended cardiac catheterization however ER physician spoke to patient's friend who is the power of health science instructor and does not want any invasive procedure done. Patient is DNR/DNI. Patient denies chest pain or shortness of breath. Medical treatment. Post blood transfusion of 2 units PRBC for low H/H.Cardiac status stable. Swallowing evaluation done mild oropharyngeal dysphagia. For transfer to [facility] for evaluation and possible right hip surgery. Awaiting bed availability. Plan: Awake, alert, oriented to self, no distress Heart rate stable Blood pressure stable Cardiac status stable Awaiting bed, transfer to [facility] On ASA 81 mg daily, Lipitor 40 mg daily,Lopressor 25 mg BID Nitropaste every 6 hours, Flomax 0.4 mg daily Continue current treatment Continue current medications Aspiration precaution DNR/DNI Discharge planning Will follow up Plan and treatment discussed with Dr. Archibald
[2018-08-14 07:12] LABS: BASO # 0.01 K/mm3 (0.0-2.0); BASO % 0.1 % (0.0-3.0); EOS # 0.1 (0.0-0.7); EOS % 1.7 % (1.5-5.0); HEMOGLOBIN 8.6 g/dL (14.0-18.0); LYMPH # 0.9 (1.2-3.4); LYMPH % 11.1 % (22.0-35.0); MEAN CORPUSCULAR HEMOGLOBIN 30.5 pg (25.0-35.0); MEAN CORPUSCULAR HGB CONC 32.5 g/dl (31.0-37.0); MEAN PLATELET VOLUME 9.7 fl (7.0-11.0); MONO # 0.6 (0.1-0.6); MONO % 7.7 % (1.0-6.0); RBC 2.82 10^6/uL (3.5-6.1); RED CELL DISTRIBUTION WIDTH 14.6 % (11.5-14.5); WHITE BLOOD COUNT 8.1 10^3/uL (4.5-11.0)
[2018-08-14 07:39] LABS: ALB/GLOB RATIO 0.8 (1.1-1.8); ALBUMIN 2.6 g/dL (3.0-4.8); ALT/SGPT 26 U/L (7-56); AST/SGOT 34 U/L (17-59); BLOOD UREA NITROGEN 27 mg/dL (7-21); CALCIUM 8.3 mg/dL (8.4-10.5); GFR NON-AFRICAN AMERICAN > 60
[2018-08-14] MEDS ORDERED: Potassium Chloride 20 mEq ER Tab PO ONE (09:55)
[2018-08-14] MEDS: Enoxaparin 40 mg Syringe SC SCH (10:11)
--- NOTE | 2018-08-14 10:30 | PN ---
SUBJECTIVE: The patient was seen and examined at bedside on the general medical [place]. No acute events overnight. He remains afebrile, hemodynamically stable and clinically unchanged. OBJECTIVE: VITAL SIGNS: Temperature 97.5, pulse 79, blood pressure 111/55, respiratory rate 18, oxygen saturation 98% on room air. GENERAL: Frail, cachectic, chronically ill-appearing man, lying in bed, in no apparent distress. HEENT: PERRL, EOMI. No scleral icterus. Mild conjunctival pallor is noted. Poor dentition is noted. Dry mucous membranes are noted. NECK: No JVD. LUNGS: Clear to auscultation. CARDIOVASCULAR: Regular rate and rhythm. Normal S1, S2. ABDOMEN: Normoactive bowel sounds, soft, nontender, nondistended. EXTREMITIES: No edema. Soft mitten restraints in place. NEUROLOGIC: Awake and alert, confused, not answering questions appropriately. Moving all extremities. LABORATORY DATA: WBC 8.1 with 79% neutrophils, hemoglobin 8.6, hematocrit 26, platelets 197. Sodium 147, potassium 3.8, chloride 117, bicarb 25, BUN 27, creatinine 1, glucose 113. ASSESSMENT: The patient is an 83-year-old man with a past medical history of hypertension and Alzheimer dementia who presented s/p fall with resultant right hip fracture and whose hospital course was complicated by STEMI. PLAN: 1. STEMI. Input from Dr. Archibald noted. Continue conservative medical management with Aspirin 81 mg p.o. daily, Lipitor 40 mg p.o. daily and Metoprolol 25 mg p.o. b.i.d. 2. Acute fracture of the right supraacetabular iliac bone. Arrangements are in process for transfer to [facility] for orthopedic evaluation with Dr. Montgomery. 3. Hypertension. Blood pressure controlled. Continue Metoprolol 25 mg p.o. b.i.d. 4. DANNA, secondary to prerenal azotemia, resolved. 5. Hypernatremia, trending favorably. Continue with gentle IV fluid hydration. 6. BPH. Continue Flomax 0.4 mg p.o. daily. 7. Alzheimer dementia. Continue Donepezil 10 mg p.o. daily. 8. Prophylaxis. GI prophylaxis not indicated as the patient is eating. DVT prophylaxis not indicated as he remains on Lovenox. CODE STATUS: DNR/DNI. Rashid Simpson MD [facility] # [id number] ABHIJIT
[2018-08-15] MEDS: Nitroglycerin 2% Ointment Foilpak UD TOP SCH ×4 (01:22→21:43)
[2018-08-15 06:34] LABS: BASO # 0.01 K/mm3 (0.0-2.0); BASO % 0.1 % (0.0-3.0); EOS # 0.1 (0.0-0.7); EOS % 1.3 % (1.5-5.0); HEMOGLOBIN 8.7 g/dL (14.0-18.0); LYMPH # 0.8 (1.2-3.4); LYMPH % 10.1 % (22.0-35.0); MEAN CELL VOLUME 93.6 fl (80.0-105.0); MEAN CORPUSCULAR HEMOGLOBIN 30.7 pg (25.0-35.0); MEAN CORPUSCULAR HGB CONC 32.8 g/dl (31.0-37.0); MEAN PLATELET VOLUME 9.7 fl (7.0-11.0); MONO # 0.7 (0.1-0.6); MONO % 8.3 % (1.0-6.0); RBC 2.83 10^6/uL (3.5-6.1); RED CELL DISTRIBUTION WIDTH 14.4 % (11.5-14.5); WHITE BLOOD COUNT 7.8 10^3/uL (4.5-11.0)
--- NOTE | 2018-08-15 06:35 | CP.PCM.PN ---
Subjective - Date & Time of Evaluation Date of Evaluation: 08/15/18 Time of Evaluation: 06:10 - Subjective Subjective: Awake, alert, no distress Reason for consultation and follow up: Cardiac evaluation of abnormal EKG, EKG reading acute ST elevation [place], denies chest pain, patient demented, recent fall complaining of right hip pain, Seen and examined by me and Dr. Archibald Objective - Vital Signs/Intake and Output Vital Signs (last 24 hours): Temp Pulse Resp BP Pulse Ox 98 F 56 L 20 133/71 96 08/14/18 23:09 08/14/18 23:09 08/14/18 23:09 08/14/18 23:09 08/14/18 23:09 Intake and Output: 08/14/18 08/15/18 18:59 06:59 Intake Total 600 120 Balance 600 120 - Medications Medications: Current Medications Aspirin (Aspirin Chewable) 81 mg PO DAILY [facility] Last Admin: 08/14/18 10:10 Dose: 81 mg Atorvastatin Calcium (Lipitor) 40 mg PO DIN [facility] Last Admin: 08/14/18 17:43 Dose: 40 mg Donepezil HCl (Aricept) 10 mg PO DAILY [facility] Last Admin: 08/14/18 10:09 Dose: 10 mg Enoxaparin Sodium (Lovenox) 40 mg SC DAILY [facility]; Protocol Last Admin: 08/14/18 10:11 Dose: 40 mg Potassium Chloride 40 meq/ (Dextrose) 1,020 mls @ 75 mls/hr IV .[id number] [facility] Last Admin: 08/14/18 17:44 Dose: 75 mls/hr Metoprolol Tartrate (Lopressor) 25 mg PO BID [facility] Last Admin: 08/14/18 17:43 Dose: 25 mg Nitroglycerin (Nitro-Bid 2% Oint) 0.5 ea TOP Q6H [facility] Last Admin: 08/15/18 01:22 Dose: 0.5 ea Tamsulosin HCl (Flomax) 0.4 mg PO DAILY [facility] Last Admin: 08/14/18 10:11 Dose: 0.4 mg - Labs Labs: 08/14/18 06:30 08/14/18 06:30 PT 14.7 SECONDS (9.4-12.5) H 08/07/18 16:37 INR 1.32 08/07/18 16:37 APTT 53.5 Seconds (26.9-38.3) H 08/09/18 01:15 - Constitutional Appears: Non-toxic, No Acute Distress - Head Exam Head Exam: NORMAL INSPECTION, NORMOCEPHALIC - Eye Exam Eye Exam: Normal appearance Pupil Exam: NORMAL ACCOMODATION - ENT Exam ENT Exam: Mucous Membranes Moist, Normal Exam - Respiratory Exam Respiratory Exam: Decreased Breath Sounds, Clear to Ausculation Bilateral, NORMAL BREATHING PATTERN - Cardiovascular Exam Cardiovascular Exam: +S1, +S2 - GI/Abdominal Exam GI & Abdominal Exam: Soft, Normal Bowel Sounds - Neurological Exam Neurological Exam: Alert, Awake - Psychiatric Exam Psychiatric exam: Normal Affect, Normal Mood - Skin Skin Exam: Dry, Normal Color, Warm Assessment and Plan - Assessment and Plan (Free Text) Assessment: An 83 year old male, who was brought to the ER due to right hip pain post fall 2 days prior to admission. History of dementia, Alzheimer's disease, B12 deficiency, benign prostatic hypertrophy, hypertension. X ray showed Right hip acute non displaced fracture of right hip.EKG finding showed ST elevation on anterior precordial leads. Troponin elevated. Recommended cardiac catheterization however ER physician spoke to patient's friend who is the power of managing attorney and does not want any invasive procedure done. Patient is DNR/DNI. Patient denies chest pain or shortness of breath. Medical treatment. Post blood transfusion of 2 units PRBC for low H/H.Cardiac status stable. Swallowing evaluation done mild oropharyngeal dysphagia. Awaiting bed availability,for transfer to [facility] for evaluation and possible right hip surgery. Clinically stable. Plan: Clinically stable Awaiting bed, transfer to [facility] Awake, no distress Heart rate stable Blood pressure stable Cardiac status stable On ASA 81 mg daily, Lipitor 40 mg daily,Lopressor 25 mg BID Nitropaste every 6 hours, Flomax 0.4 mg daily Continue current treatment Continue current medications Aspiration precaution DNR/DNI Discharge planning Will follow up Plan and treatment discussed with Dr. Archibald
[2018-08-15 06:41] LABS: ALB/GLOB RATIO 0.8 (1.1-1.8); ALBUMIN 2.6 g/dL (3.0-4.8); ALT/SGPT 21 U/L (7-56); AST/SGOT 40 U/L (17-59); BLOOD UREA NITROGEN 25 mg/dL (7-21); CALCIUM 8.3 mg/dL (8.4-10.5); GFR NON-AFRICAN AMERICAN > 60
[2018-08-15] MEDS: Enoxaparin 40 mg Syringe SC SCH (10:00)
--- NOTE | 2018-08-15 10:31 | PN ---
SUBJECTIVE: The patient was seen and examined at bedside on the general medical [place]. No acute events overnight. He remains afebrile, hemodynamically stable and clinically unchanged. He is pending transfer to [facility] for orthopedic intervention of his right hip fracture. OBJECTIVE: VITAL SIGNS: Temperature 98, pulse 86, blood pressure 122/70, respiratory rate 16, oxygen saturation 98% on room air. GENERAL: Frail, cachectic, chronically ill-appearing man lying in bed in no apparent distress. HEENT: PERRL, EOMI. No scleral icterus. Mild conjunctival pallor is noted. Poor dentition is noted. Dry mucous membranes are noted. NECK: No JVD. LUNGS: Clear to auscultation. CARDIOVASCULAR: Regular rate and rhythm. Normal S1, S2. ABDOMEN: Normoactive bowel sounds, soft, nontender and nondistended. EXTREMITIES: No edema. Soft mitten restraints in place. NEUROLOGIC: Awake and alert, confused, not answering questions appropriately. Moving all extremities. LABORATORY DATA: WBC 7.8 with 80% neutrophils, hemoglobin 8.7, hematocrit 26, platelets 218. Sodium 144, potassium 4, chloride 114, bicarb 24, BUN 25, creatinine 0.9, glucose 110. ASSESSMENT: The patient is an 83-year-old man with a past medical history of hypertension and Alzheimer dementia who presented s/p fall with resultant right hip fracture and whose hospital course was complicated by STEMI. PLAN: 1. STEMI. Input from Dr. Archibald noted. Continue conservative medical management with ASA 81 mg p.o. daily, Lipitor 40 mg p.o. daily and Metoprolol 25 mg p.o. b.i.d. 2. Acute fracture of the right supraacetabular iliac bone. Arrangements are in process for transfer to [facility] for orthopedic evaluation with Dr. Montgomery. 3. Hypertension. Blood pressure controlled. Continue Metoprolol 25 mg p.o. b.i.d. 4. DANNA, secondary to prerenal azotemia, resolved. 5. Hypernatremia, resolved. We will discontinue IV fluid hydration and continue to encourage p.o. intake. 6. BPH. Continue Flomax 0.4 mg p.o. daily. 7. Alzheimer dementia. Continue Donepezil 10 mg p.o. daily 8. Prophylaxis. GI prophylaxis not indicated as the patient is eating. DVT prophylaxis not indicated as he remains on Lovenox. CODE STATUS: DNR/DNI. Rashid Simpson MD [facility]
[2018-08-15 22:29] VITALS: RESP 18
[2018-08-16] MEDS: Nitroglycerin 2% Ointment Foilpak UD TOP SCH ×2 (03:08→07:46)
--- NOTE | 2018-08-16 07:29 | CP.PCM.PN ---
Subjective - Date & Time of Evaluation Date of Evaluation: 08/16/18 Time of Evaluation: 07:20 - Subjective Subjective: Lying in bed, awake, alert, no distress,confuse Reason for consultation and follow up: Cardiac evaluation of abnormal EKG, EKG reading acute ST elevation [place], denies chest pain, patient demented, recent fall complaining of right hip pain, Seen and examined by me and Dr. Archibald Objective - Vital Signs/Intake and Output Vital Signs (last 24 hours): Temp Pulse Resp BP Pulse Ox 98.2 F 78 18 115/66 92 L 08/15/18 22:29 08/15/18 22:29 08/15/18 22:29 08/15/18 22:29 08/15/18 14:00 Intake and Output: 08/16/18 08/16/18 06:59 18:59 Intake Total 0 Output Total 1 Balance -1 - Medications Medications: Current Medications Aspirin (Aspirin Chewable) 81 mg PO DAILY [facility] Last Admin: 08/15/18 10:00 Dose: 81 mg Atorvastatin Calcium (Lipitor) 40 mg PO DIN [facility]S [facility] Last Admin: 08/15/18 17:02 Dose: 40 mg Donepezil HCl (Aricept) 10 mg PO DAILY [facility] Last Admin: 08/15/18 10:00 Dose: 10 mg Enoxaparin Sodium (Lovenox) 40 mg SC DAILY [facility]; Protocol Last Admin: 08/15/18 10:00 Dose: 40 mg Metoprolol Tartrate (Lopressor) 25 mg PO BID [facility] Last Admin: 08/15/18 17:02 Dose: 25 mg Nitroglycerin (Nitro-Bid 2% Oint) 0.5 ea TOP Q6H [facility]S [facility] Last Admin: 08/16/18 03:08 Dose: 0.5 ea Tamsulosin HCl (Flomax) 0.4 mg PO DAILY [facility] Last Admin: 08/15/18 10:00 Dose: 0.4 mg - Labs Labs: 08/15/18 06:00 08/15/18 06:00 PT 14.7 SECONDS (9.4-12.5) H 08/07/18 16:37 INR 1.32 08/07/18 16:37 APTT 53.5 Seconds (26.9-38.3) H 08/09/18 01:15 - Constitutional Appears: Non-toxic, No Acute Distress - Head Exam Head Exam: NORMAL INSPECTION, NORMOCEPHALIC - Eye Exam Eye Exam: Normal appearance Pupil Exam: NORMAL ACCOMODATION - ENT Exam ENT Exam: Mucous Membranes Moist - Respiratory Exam Respiratory Exam: Decreased Breath Sounds, Clear to Ausculation Bilateral, NORMAL BREATHING PATTERN - Cardiovascular Exam Cardiovascular Exam: +S1, +S2 - GI/Abdominal Exam GI & Abdominal Exam: Soft, Normal Bowel Sounds - Neurological Exam Neurological Exam: Alert, Awake - Psychiatric Exam Additional comments: confuse - Skin Skin Exam: Dry, Normal Color, Warm Assessment and Plan - Assessment and Plan (Free Text) Assessment: An 83 year old male, who was brought to the ER due to right hip pain post fall 2 days prior to admission. History of dementia, Alzheimer's disease, B12 deficiency, benign prostatic hypertrophy, hypertension. X ray showed Right hip acute non displaced fracture of right hip.EKG finding showed ST elevation on anterior precordial leads. Troponin elevated. Recommended cardiac catheterization however ER physician spoke to patient's friend who is the power of banking attorney and does not want any invasive procedure done. Patient is DNR/DNI. Patient denies chest pain or shortness of breath. Medical treatment. Post blood transfusion of 2 units PRBC for low H/H.Cardiac status stable. Swallowing evaluation done mild oropharyngeal dysphagia. For transfer to [facility] for evaluation and possible right hip surgery. Clinically stable. Awaiting bed availability. Cardiac status stable. Plan: Cardiac status stable Clinically stable Awaiting bed, transfer to [facility] Awake, no distress Heart rate stable Blood pressure stable On ASA 81 mg daily, Lipitor 40 mg daily,Lopressor 25 mg BID Nitropaste every 6 hours, Flomax 0.4 mg daily Continue current treatment Continue current medications Aspiration precaution DNR/DNI Discharge planning Will follow up Plan and treatment discussed with Dr. Archibald
[2018-08-16 08:10] LABS: BASO # 0.01 K/mm3 (0.0-2.0); BASO % 0.1 % (0.0-3.0); EOS # 0.1 (0.0-0.7); EOS % 1.2 % (1.5-5.0); HEMOGLOBIN 9.8 g/dL (14.0-18.0); LYMPH # 0.9 (1.2-3.4); LYMPH % 10.4 % (22.0-35.0); MEAN CELL VOLUME 92.3 fl (80.0-105.0); MEAN CORPUSCULAR HEMOGLOBIN 30.1 pg (25.0-35.0); MEAN CORPUSCULAR HGB CONC 32.6 g/dl (31.0-37.0); MONO # 0.7 (0.1-0.6); MONO % 8.1 % (1.0-6.0); RBC 3.26 10^6/uL (3.5-6.1); RED CELL DISTRIBUTION WIDTH 14.3 % (11.5-14.5); WHITE BLOOD COUNT 8.9 10^3/uL (4.5-11.0)
[2018-08-16 08:25] LABS: ALBUMIN 3.2 g/dL (3.0-4.8); ALT/SGPT 23 U/L (7-56); AST/SGOT 53 U/L (17-59); BLOOD UREA NITROGEN 25 mg/dL (7-21); CALCIUM 8.9 mg/dL (8.4-10.5); GFR NON-AFRICAN AMERICAN > 60
[2018-08-16] MEDS: Enoxaparin 40 mg Syringe SC SCH (09:20)
[2018-08-16 09:25] VITALS: BP 106/88; PULSE 70
[2018-08-16 09:38] VITALS: TEMP 98.8; O2SAT 98
--- NOTE | 2018-08-16 13:01 | PN ---
SUBJECTIVE: The patient was seen and examined at bedside on the [facility] [place]. No acute events overnight. He is pending transfer to [facility] for orthopedic intervention of his right hip fracture. OBJECTIVE: VITAL SIGNS: Temperature 98, pulse 70, blood pressure 120/66, respiratory rate 20 and oxygen saturation 98% on room air. GENERAL: Frail, cachectic, chronically ill-appearing man lying in bed in no apparent distress. HEENT: PERRL, EOMI. No scleral icterus. Mild conjunctival pallor is noted. Poor dentition is noted. Dry mucous membranes are noted. NECK: No JVD. LUNGS: Clear to auscultation. CARDIOVASCULAR: Regular rate and rhythm. Normal S1 and S2. ABDOMEN: Normoactive bowel sounds, soft, nontender and nondistended. EXTREMITIES: No edema. Soft mitten restraints in place. NEUROLOGIC: Awake and alert, confused, not answering questions appropriately. Moving all extremities. LABORATORY DATA: WBC 8.9, hemoglobin 9.8, hematocrit 30 and platelets 264. Sodium 145, potassium 3.6, chloride 114, bicarb 25, BUN 25, creatinine 0.9 and glucose 92. ASSESSMENT: The patient is an 83-year-old man with a past medical history of hypertension and Alzheimer dementia who presented s/p fall with resultant right hip fracture and whose hospital course was complicated by STEMI. PLAN: 1. STEMI. Input from Dr. Archibald noted. Continue conservative medical management with ASA 81 mg p.o. daily, Lipitor 40 mg p.o. daily and Metoprolol 25 mg p.o. b.i.d. 2. Acute fracture of the right supraacetabular iliac bone. Arrangements are in process for transfer to [facility] today for orthopedic evaluation with Dr. Montgomery. 3. Hypertension. Blood pressure controlled. Continue Metoprolol 25 mg p.o. b.i.d. 4. DANNA, secondary to prerenal azotemia, resolved. 5. Hypernatremia, resolved. 6. BPH. Continue Flomax 0.4 mg p.o. daily. 7. Alzheimer dementia. Continue Donepezil 10 mg p.o. daily. 8. Prophylaxis. GI prophylaxis not indicated as the patient is eating. Continue Lovenox for DVT prophylaxis. CODE STATUS: DNR/DNI. Rashid Simpson MD Minh # [id number]
== END 2018-08-16 10:12 | disposition short-term general hospital (02) | DRG 280 ==
LOC: ED 10:51 → ERH 14:01 → 2RSO 22:13 → 5RNO 08-13 14:16
PROVIDERS: ADMIT Student in an Organized Health Care Education/Training Program; ATTEND Student in an Organized Health Care Education/Training Program
DX: I21.29 ST elevation (STEMI) myocardial infarction involving other sites (principal); S32.491A Other specified fracture of right acetabulum, initial encounter for closed fracture; S32.82XA Multiple fractures of pelvis without disruption of pelvic ring, initial encounter for closed fracture; Z68.1 Body mass index [BMI] 19.9 or less, adult; E87.0 Hyperosmolality and hypernatremia; R64 Cachexia; N17.9 Acute kidney failure, unspecified; I10 Essential (primary) hypertension; F02.80 Dementia in other diseases classified elsewhere, unspecified severity, without behavioral disturbance, psychotic disturbance, mood disturbance, and anxiety; G30.9 Alzheimer's disease, unspecified; N40.0 Benign prostatic hyperplasia without lower urinary tract symptoms; R13.12 Dysphagia, oropharyngeal phase; Z66 Do not resuscitate; W19.XXXA Unspecified fall, initial encounter; Y92.009 Unspecified place in unspecified non-institutional (private) residence as the place of occurrence of the external cause